=== PATIENT | female | born 1985 | race American Indian/Alaskan Native ===

== ENCOUNTER 2018-02-18 15:52 | Emergency (ER) | payer OTHER ==
[2018-02-18 15:57] VITALS: BP 133/72
[2018-02-18] MEDS ORDERED: Sodium Chloride 0.9% 10 ML Syringe FLUSH PRN (16:13)
[2018-02-18] MEDS ORDERED: Albuterol 0.083% 2.5 MG/3 ML Neb Soln NEB ONE (16:14)
[2018-02-18] MEDS ORDERED: Sodium Chloride 0.9% 1,000 ML IV ONE (16:14)
[2018-02-18] MEDS ORDERED: Acetaminophen/HYDROcodone 325-10 MG Tab PO ONE (16:14)
[2018-02-18] MEDS ORDERED: Iopamidol 755 Mg/ML 100 ML Bottle IVPUSH ONE (16:48)
[2018-02-18 16:57] LABS: CHLORIDE,CL 106 mmol/L (101-111); SODIUM,NA 136 mmol/L (135-145)
--- NOTE | 2018-02-18 18:41 | CT ---
Clinical history: 32 year-old 295 pound diabetic female. Cough, chills, dyspnea. WBC 5200. Serum D di keven 135. 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 O2 sat 95%. Normal renal function and BNP neg. Scan technique: Volume acquisition of data from the chest (bony thorax, lungs and mediastinum) obtain ed during the intravenous administration 85 cc nonionic Isovue 370 at 5 cc/s via injector (PE protoco l) while patient was lying supine on the Siemens multi slice scanner [place], [place]. All data archived in the PACS system for storage, reformatting and study. Interpretation: Abnormal. 1. Dense, bilateral, perihilar pneumonic like consolidation (groundglass appearance with air bronchog saba, particularly on the left). 2. Subcentimeter subcarinal middle mediastinal lymphadenopathy. 3. Scattered, peripheral, multifocal lobular consolidation throughout both lung nuñez (similar prese ntation noted peripherally on CT scan chest 19 July 2016. Significance?) but.... no cu rrent signs of intraluminal filling defect or thrombus within the pulmonary artery circulation. No de pendent pleural fluid accumulation. 4. No discrete lung nodule or mass lesion. No hilar lymphadenopathy. 5. Normal cardiac silhouette. No cephalization of vascular flow or alveolar edema. No pericardial eff usion. Normal thoracic aorta. 6. Unenhanced liver, spleen and pancreas unremarkable. Normal stomach. Discussion: Community-acquired Streptococcus, viral or Mycoplasma pneumonia likely but suggest atypic al viral pneumonias like Legionella or Hantavirus Pulmonary Syndrome possible. Noncardiogenic pulmona ry edema in the differential consideration along with hypersensitivity ([place] lung like) pneumonit is. CONCLUSION: No sign of heart failure (CHF) or pulmonary embolism/infarct. *Abnormal pulmonary pneumonic like consolidation.
--- NOTE | 2018-02-18 18:53 | EDM.PDOC ---
Scribed by Susan Uriarte 02/18/18 0335 for Joni Lackey MD ED HPI GENERAL MEDICAL PROBLEM - General Chief Complaint: Respiratory Problem Stated Complaint: IN BY AMBULANCE Time Seen by Provider: 02/18/18 15:48 Source of Information: Reports: Patient, EMS, EMS Notes Reviewed, RN, RN Notes Reviewed - History of Present Illness INITIAL COMMENTS - FREE TEXT/NARRATIVE: Patient presents to ER via [facility] from [facility] by Dr. Jacques with report of cough with shortness of breath and high fevers that began yesterday. Dr. 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 Patient denies chest pain, nausea, vomiting, sore throat or rashes. Denies any history of cardiovascular disease or asthma. Onset Date: 02/17/18 Duration: Constant, Getting Worse Location: Reports: Chest Severity: Severe Improves with: Reports: None Worsens with: Reports: None Associated Symptoms: Reports: No Other Symptoms Treatments REFERENCE DATA EXPERT: Reports: Breathing Treatments Head Pain Score (Numeric/FACES): 7 - Related Data Allergies Allergy/AdvReac Type Severity Reaction Status Date / Time lidocaine Allergy Intermediate Nausea and Verified 02/18/18 16:45 Vomiting Penicillins Allergy Intermediate Rash Verified 02/18/18 16:45 Home Meds: Home Meds Famotidine [Heartburn Relief] 20 mg PO DAILY PRN 07/16/16 [History] Acetaminophen [Tylenol] 650 mg PO Q6H PRN 07/21/17 [History] Past Medical History - Past Health History Medical/Surgical History: Denies Medical/Surgical History Cardiovascular History: Reports: Other (See Below) Other Cardiovascular History: preeclampsia Respiratory History: Reports: None Gastrointestinal History: Reports: GERD Genitourinary History: Reports: None MANAGER THERAPY History: Reports: , Other (See Below) Other OB/BYN History: first , infant shortly after Musculoskeletal History: Reports: None Neurological History: Reports: None Psychiatric History: Reports: None Endocrine/Metabolic History: Reports: Diabetes, Gestational Hematologic History: Reports: None Immunologic History: Reports: None Oncologic (Cancer) History: Reports: None Dermatologic History: Reports: None - Infectious Disease History Infectious Disease History: Reports: None - Past Surgical History Head Surgeries/Procedures: Reports: None HEENT Surgical History: Reports: Oral Surgery Other HEENT Surgeries/Procedures: root canal "in my early 20s" Had lidocaine reaction. Social & Family History - Family History Family Medical History: Noncontributory - Caffeine Use Caffeine Use: Reports: Coffee, Soda Caffeine Use Comment: 12pk/day, then cut back to 6pk/day, now 1-2/day - Living Situation & Occupation Living situation: Reports: with Family Occupation: Employed ED ROS GENERAL - Review of Systems Review Of Systems: ROS reveals no pertinent complaints other than HPI. ED EXAM, GENERAL - Physical Exam Exam: See Below Exam Limited By: No Limitations General Appearance: Alert, Obese, Other (acute ill appearing ) Eye Exam: Bilateral Eye: Normal Inspection Ears: Normal External Exam, Normal Canal, Hearing Grossly Normal, Normal TMs Nose: Normal Inspection, Normal Mucosa, No Blood Throat/Mouth: Normal Inspection, Normal Lips, Normal Teeth, Normal Gums, Normal Oropharynx, Normal Voice, No Airway Compromise, Other (slightly dry oral membranes) Head: Atraumatic, Normocephalic Neck: Normal Inspection, Supple, Non-Tender, Full Range of Motion, Other (No nuchal rigidity). No: Lymphadenopathy (L), Lymphadenopathy (R) Respiratory/Chest: Decreased Breath Sounds, Crackles, Rhonchi, Wheezing, Other ( increased work of breathing) Cardiovascular: Normal Peripheral Pulses, Regular Rate, Rhythm, No Edema, No Gallop, No JVD, No Murmur, No Rub GI/Abdominal: Normal Bowel Sounds, Soft, Non-Tender, No Distention, Other ( benign obese abdomen) (Female) Exam: Deferred Rectal (Female) Exam: Deferred Back Exam: Normal Inspection. No: CVA Tenderness (L), CVA Tenderness (R) Extremities: Normal Inspection, Normal Range of Motion, Non-Tender, No Pedal Edema, Normal Capillary Refill Neurological: Alert, Oriented, CN II-XII Intact, Normal Cognition, Normal Gait, No Motor/Sensory Deficits Psychiatric: Normal Affect, Normal Mood Skin Exam: Warm, Dry, Intact, No Rash, Other (flushed appearance of face) EKG INTERPRETATION EKG Date: 02/18/18 Time: 16:15 Rhythm: Other (sinus rhythm) Rate (Beats/Min): 87 [place]: Normal P-Wave: Present QRS: Other (consider left ventricular hypertrophy and inferior Q waves, probably normal variation.) ST-T: Normal QT: Normal Course - Vital Signs Last Recorded V/S: Last Vital Signs Temp 37.7 C 02/18/18 15:56 Pulse 87 02/18/18 15:56 Resp 18 02/18/18 15:56 BP 133/72 02/18/18 15:56 Pulse Ox 95 02/18/18 15:56 - Orders/Labs/Meds Orders: Active Orders 24 hr Category Date Time Status EKG 12 Lead [EKG Documentation Completion] [] STAT Care 02/18/18 16:12 Active Peripheral IV Care [] . DIRECTED Care 02/18/18 16:13 Active RT Aerosol Therapy [] ASDIRECTED Care 02/18/18 16:14 Active CULTURE BLOOD [] Stat Lab 02/18/18 16:25 Received CULTURE BLOOD [] Stat Lab 02/18/18 16:29 Received CULTURE STREP A CONFIRMATION [] Stat Lab 02/18/18 17:15 Results HCG QUALITATIVE,URINE [URCHEM] Stat Lab 02/18/18 16:54 Ordered INFLUENZA A+B AG SCREEN [] Stat Lab 02/18/18 16:49 Ordered STREP SCRN A RAPID W CULT CONF [] Stat Lab 02/18/18 17:15 Results UA W/MICROSCOPIC [URIN] Stat Lab 02/18/18 16:54 Ordered Sodium Chloride 0.9% [Saline Flush] Med 02/18/18 16:13 Active 10 ml FLUSH ASDIRECTED PRN Blood Culture x2 Reflex Set [OM.PC] Stat Oth 02/18/18 16:12 Ordered Peripheral IV Insertion Adult [OM.PC] Stat Oth 02/18/18 16:12 Ordered Medication Orders Sodium Chloride (Saline Flush) 10 ml FLUSH ASDIRECTED PRN PRN Reason: Keep Vein Open Last Admin: 02/18/18 16:36 Dose: 10 ml Labs: Laboratory Tests 02/18/18 02/18/18 02/18/18 Range/Units 16:25 16:25 16:25 WBC 5.2 (5.0-10.0) 10^3/uL RBC 4.93 (4.2-5.4) 10^6/uL Hgb 13.5 D (12.0-16.0) g/dL Hct 41.2 (37.0-47.0) % MCV 83.6 (80-100) fL MCH 27.4 (27.0-34.0) pg MCHC 32.8 L (33.0-35.0) g/dL Plt Count 260 D (150-450) 10^3/uL Neut % (Auto) 53.5 (42.2-75.2) % Lymph % (Auto) 32.6 (20.5-50.1) % [place] % (Auto) 7.7 (2-8) % Eos % (Auto) 6.0 H (1.0-3.0) % Baso % (Auto) 0.2 (0.0-1.0) % D-Dimer, Quantitative 133 (0-400) ng/mL Sodium 136 (135-145) mmol/L Potassium 3.5 L (3.6-5.0) mmol/L Chloride 106 (101-111) mmol/L Carbon Dioxide 23.0 (21.0-31.0) mmol/L Anion Gap 10.5 BUN 15 (7-18) mg/dL Creatinine 0.7 (0.6-1.3) mg/dL Est Cr Clr Drug Dosing TNP Estimated GFR (MDRD) > 60 BUN/Creatinine Ratio 21.42 Glucose 108 H (74-105) mg/dL Lactic Acid (0.5-2.2) mmol/L Calcium 8.8 (8.4-10.2) mg/dl Total Bilirubin 0.4 (0.2-1.0) mg/dL AST 78 H (10-42) IU/L ALT 176 H (10-60) IU/L Alkaline Phosphatase 145 H (42-121) IU/L B-Natriuretic Peptide < 5 (0-100) pg/ml Total Protein 8.5 H (6.7-8.2) g/dl Albumin 3.9 (3.2-5.5) g/dl Globulin 4.6 Albumin/Globulin Ratio 0.85 Urine Color (YELLOW) Urine Appearance (CLEAR) Urine pH (5.0-9.0) Ur Specific [place] (1.005-1.030) Urine Protein (NEGATIVE) Urine Glucose (UA) (NEGATIVE) Urine Ketones (NEGATIVE) Urine Occult Blood (NEGATIVE) Urine Nitrite (NEGATIVE) Urine Bilirubin (NEGATIVE) Urine Urobilinogen (0.2-1.0) mg/dL Ur Leukocyte Esterase (NEGATIVE) Urine RBC /HPF Urine WBC (0-5/HPF) /HPF Ur Epithelial Cells /HPF Urine Bacteria (0-FEW/HPF) /HPF Urine Mucus /LPF Urine HCG, Qual 02/18/18 02/18/18 02/18/18 Range/Units 16:25 16:54 16:54 WBC (5.0-10.0) 10^3/uL RBC (4.2-5.4) 10^6/uL Hgb (12.0-16.0) g/dL Hct (37.0-47.0) % MCV (80-100) fL MCH (27.0-34.0) pg MCHC (33.0-35.0) g/dL Plt Count (150-450) 10^3/uL Neut % (Auto) (42.2-75.2) % Lymph % (Auto) (20.5-50.1) % [place] % (Auto) (2-8) % Eos % (Auto) (1.0-3.0) % Baso % (Auto) (0.0-1.0) % D-Dimer, Quantitative (0-400) ng/mL Sodium (135-145) mmol/L Potassium (3.6-5.0) mmol/L Chloride (101-111) mmol/L Carbon Dioxide (21.0-31.0) mmol/L Anion Gap BUN (7-18) mg/dL Creatinine (0.6-1.3) mg/dL Est Cr Clr Drug Dosing Estimated GFR (MDRD) BUN/Creatinine Ratio Glucose (74-105) mg/dL Lactic Acid 1.0 (0.5-2.2) mmol/L Calcium (8.4-10.2) mg/dl Total Bilirubin (0.2-1.0) mg/dL AST (10-42) IU/L ALT (10-60) IU/L Alkaline Phosphatase (42-121) IU/L B-Natriuretic Peptide (0-100) pg/ml Total Protein (6.7-8.2) g/dl Albumin (3.2-5.5) g/dl Globulin Albumin/Globulin Ratio Urine Color Yellow (YELLOW) Urine Appearance Clear (CLEAR) Urine pH 6.0 (5.0-9.0) Ur Specific [place] >= 1.030 (1.005-1.030) Urine Protein Trace H (NEGATIVE) Urine Glucose (UA) Negative (NEGATIVE) Urine Ketones Negative (NEGATIVE) Urine Occult Blood Negative (NEGATIVE) Urine Nitrite Negative (NEGATIVE) Urine Bilirubin Negative (NEGATIVE) Urine Urobilinogen 0.2 (0.2-1.0) mg/dL Ur Leukocyte Esterase Negative (NEGATIVE) Urine RBC 0-5 /HPF Urine WBC 0-5 (0-5/HPF) /HPF Ur Epithelial Cells Few /HPF Urine Bacteria Few (0-FEW/HPF) /HPF Urine Mucus Few H /LPF Urine HCG, Qual Negative Rapid strep: Negative. Influenza A and B: Negative. Meds: Medications Generic Name Dose Route Start Last Admin Trade Name Freq PRN Reason Stop Dose Admin Sodium Chloride 10 ml 02/18/18 16:13 02/18/18 16:36 Saline Flush FLUSH 10 ml ASDIRECTED PRN Administration Keep Vein Open Discontinued Medications Generic Name Dose Route Start Last Admin Trade Name Freq PRN Reason Stop Dose Admin Hydrocodone Bitart/Acetaminophen 1 tab 02/18/18 16:14 02/18/18 16:36 Collins 325-10 Mg PO 02/18/18 16:15 1 tab ONETIME ONE Administration Albuterol 2.5 mg 02/18/18 16:14 02/18/18 16:36 Proventil Neb Soln NEB 02/18/18 16:15 2.5 mg ONETIME ONE Administration Sodium Chloride 1,000 mls @ 999 mls/hr 02/18/18 16:14 02/18/18 16:36 Normal Saline IV 02/18/18 17:14 999 mls/hr .BOLUS ONE Administration Iopamidol 100 ml 02/18/18 16:48 02/18/18 17:40 Isovue-370 (76%) IVPUSH 02/18/18 16:49 85 ml ONETIME ONE Administration - Radiology Interpretation Free Text/Narrative:: Chest x-ray from [facility] reviewed. Abnormal bilateral perihilar "show " with asymmetric left perihilar pneumonic like consolidation new since CT scan chest July 19, 2016. See report in chart. Chest CT: Dense, bilateral, perihilar pneumonic-like consolidation (ground glass appearance with air bronchograms, particularly on the left). Subcentimeter subcarinal middle mediastinal lymphadenopathy. Scattered, peripheral, multifocal lobular consolidation throughout both lung nuñez ( similar presentation noted peripherally on CT scan chest July 10, 2016. Significant?). but no current signs of intraluminal filling defect or thrombus within the pulmolnary artery circulation. No dependent pleural fluid accumulation. No discrete lung nodule or mass lesion. No hilar lymphadenopathy. Normal cardiac silhouette. No cephalization of vascular flow or alveolar edema. No pericardial effusion. Normal thoracic aorta. Unenhanced liver, spleen and pancreas unremarkable. Normal stomach.Discussion:Community acquired Streptococcus,viral or Mycoplasma pneumonia likely but suggest atypical viral pneumonias like Legionella or Hantavirus pulmonary syndrome possible. Noncardiogenic pulmonary edema in the differential consideration along with hypersensitivity ([place]'s lung like) pneumonitis. Conclusion shows no sign of heart failure(CHF)or pulmonary embolism/infarct. *Abnormal pulmonary pneumonic like consolidation. See rad report. - Re-Assessments/Exams Free Text/Narrative Re-Assessment/Exam: 02/18/18 15:46 02/18/18 16:19 Departure - Departure Time of Disposition: 18:39 Disposition: DC/Tfer to Acute Hospital 02 Condition: Serious Clinical Impression: Pulmonary infiltrates, Acute febrile illness Dyspnea Qualifiers: Dyspnea type: unspecified Qualified Code(s): R06.00 - Dyspnea, unspecified - Discharge Information Referrals: PCP,None [Primary Care Provider] - Forms: ED Department Discharge, Interfacility Transfer EMTALA - My Orders Last 24 Hours: My Active Orders 02/18/18 16:12 EKG 12 Lead [EKG Documentation Completion] [RC] STAT Blood Culture x2 Reflex Set [OM.PC] Stat Peripheral IV Insertion Adult [OM.PC] Stat 02/18/18 16:13 Peripheral IV Care [RC] . DIRECTED Sodium Chloride 0.9% [Saline Flush] 10 ml FLUSH ASDIRECTED PRN 02/18/18 16:14 RT Aerosol Therapy [RC] ASDIRECTED 02/18/18 16:25 CULTURE BLOOD [BC] Stat 02/18/18 16:29 CULTURE BLOOD [BC] Stat 02/18/18 16:49 INFLUENZA A+B AG SCREEN [RM] Stat 02/18/18 16:54 HCG QUALITATIVE,URINE [URCHEM] Stat UA W/MICROSCOPIC [URIN] Stat 02/18/18 17:15 CULTURE STREP A CONFIRMATION [RM] Stat STREP SCRN A RAPID W CULT CONF [RM] Stat - Assessment/Plan Last 24 Hours: My Active Orders 02/18/18 16:12 EKG 12 Lead [EKG Documentation Completion] [RC] STAT Blood Culture x2 Reflex Set [OM.PC] Stat Peripheral IV Insertion Adult [OM.PC] Stat 02/18/18 16:13 Peripheral IV Care [RC] . DIRECTED Sodium Chloride 0.9% [Saline Flush] 10 ml FLUSH ASDIRECTED PRN 02/18/18 16:14 RT Aerosol Therapy [RC] ASDIRECTED 02/18/18 16:25 CULTURE BLOOD [BC] Stat 02/18/18 16:29 CULTURE BLOOD [BC] Stat 02/18/18 16:49 INFLUENZA A+B AG SCREEN [RM] Stat 02/18/18 16:54 HCG QUALITATIVE,URINE [URCHEM] Stat UA W/MICROSCOPIC [URIN] Stat 02/18/18 17:15 CULTURE STREP A CONFIRMATION [RM] Stat STREP SCRN A RAPID W CULT CONF [RM] Stat I have read and agree with the documentation that has been completed regarding this visit. By signing this record, I attest that the documentation was completed in my physical presence and is an accurate record of the encounter.
--- NOTE | 2018-02-19 18:31 | EKG ---
02/18/2018 - ADAM REZA - TIME: 4:15 p.m. FINDINGS: Normal sinus rhythm at 87. [facility] /[id number]
== END 2018-02-18 19:00 ==
LOC: DL.ED 15:52
DX: R06.00 Dyspnea, unspecified (principal); R91.8 Other nonspecific abnormal finding of lung field; R50.9 Fever, unspecified; Z88.0 Allergy status to penicillin; Z88.8 Allergy status to other drugs, medicaments and biological substances; Z79.899 Other long term (current) drug therapy
CPT/HCPCS: 36415; 71260; 80053; 81001; 81025; 83605; 83880; 85025; 85379; 87040; 87081; 87430; 87804; 93005; 96360; 99285; A9270; J7030; J7050; J7620; Q9967

== ENCOUNTER 2018-10-24 19:49 | Day surgery (SDC) | payer BC, OTHER ==
--- NOTE | 2018-10-24 12:24 | HP ---
Preoperative history and physical INTRODUCTION: This 33-year-old female was referred by [facility] with a 2-day history of severe umbilical pain and physical examination compatible with an umbilical hernia. She is unable to eat anything, probably not from obstruction, but from just the pain. Instead of referring her to the emergency room, I simply had them send her to my clinic for the evaluation there. PAST MEDICAL HISTORY: The patient has questionable allergies to penicillin and lidocaine. She vomited after lidocaine was used for the dentist, but has since had lidocaine for carpal tunnel procedure without any difficulty. She also had reaction to penicillin, not really an allergy, but got a post penicillin vaginal yeast infection. CURRENT MEDICATIONS: She takes medication for thyroid. PAST SURGICAL HISTORY: Prior surgeries include section and right carpal tunnel syndrome surgery release. FAMILY HISTORY AND SOCIAL HISTORY: The patient is . She lives in [place]. She does not smoke. REVIEW OF SYSTEMS: Negative for all systems. Cardiac: Negative for chest pain. Respiratory: Negative for shortness of breath, asthma, or COPD. PHYSICAL EXAMINATION: HEENT: Normal. Chest and lungs: Clear bilaterally to auscultation. Heart: Normal sinus rhythm. Abdomen: Morbidly obese. She has a large palpable umbilical hernia with purple necrotic-appearing tissue underneath the umbilical skin. This is too tender to try to manipulate; therefore, incarcerated. Extremities: Have normal range of motion. Neurologic: Grossly intact. ASSESSMENT: Incarcerated umbilical hernia. PLAN: I discussed the risks, benefits, and expected outcomes of an open surgical repair for this. The patient will go to the operating room today. [facility] /[id number]
[~2018-10-24 19:49] MED LIST: Lactated Ringers 1,000 ML IV SCH; Morphine 2 MG/ML Syringe IVPUSH ONE; Morphine 2 MG/ML Syringe IVPUSH PRN; Ondansetron 4 MG/2 ML SDV IVPUSH PRN; ceFAZolin 2 GM in Premix Bag 1 BAG IV ONE
[2018-10-24] MEDS ORDERED: Midazolam 1 MG/ML 2 ML SDV IV ONE (19:50)
[2018-10-24] MEDS ORDERED: Lactated Ringers 1,000 ML IV ONE (19:50)
[2018-10-24] MEDS ORDERED: Ketorolac 30 MG/ML SDV IVPUSH ONE (19:50)
[2018-10-24] MEDS ORDERED: fentaNYL 250 MCG/5 ML SDV IV ONE (19:50)
[2018-10-24] MEDS ORDERED: Dexamethasone 4 MG/ML SDV IV ONE (19:50)
[2018-10-24] MEDS ORDERED: Propofol 200 MG/20 ML SDV IV ONE (19:50)
[2018-10-24] MEDS ORDERED: Ondansetron 4 MG/2 ML SDV IV ONE (19:50)
[2018-10-24] MEDS ORDERED: Glycopyrrolate 0.2 MG/ML 2 ML SDV IV ONE (19:50)
[2018-10-24] MEDS ORDERED: Neostigmine Methylsulfate 10 MG/10 ML MDV IV ONE (19:50)
[2018-10-24] MEDS ORDERED: Rocuronium 50 MG/5 ML Vial IV ONE (19:50)
[2018-10-24] MEDS: Sodium Chloride 0.9% 10 ML Syringe FLUSH PRN ×2 (20:26→20:44)
[2018-10-25] MEDS: Acetaminophen/oxyCODONE 325-5 MG Tab PO PRN ×3 (00:20→08:30)
--- NOTE | 2018-10-25 00:48 | OR ---
DATE: 10/24/2018 PREOPERATIVE DIAGNOSIS: Incarcerated umbilical hernia. POSTOPERATIVE DIAGNOSIS: Incarcerated umbilical hernia. PROCEDURES: Open repair of incarcerated umbilical hernia and amputation of the omentum. ANESTHESIA: General. ESTIMATED BLOOD LOSS: Minimal. SPECIMEN: Hernia sac and omentum. INDICATION FOR PROCEDURE: This 33-year-old female has a large incarcerated hernia with necrosis through the umbilical skin. PROCEDURE IN DETAIL: After adequate preparation, an elliptical incision was made around the umbilicus. As I had discussed with the patient preoperatively, I was going to excise the umbilical skin since it has had some areas of questionable viability. The hernia sac was dissected free from the subcutaneous tissue and taken down to the linea alba. The linea alba was incised circumferentially around the incarcerated hernia. The part of the sac was opened, and the omentum was reduced. However, the remaining distal part was stuck inside the hernia sac. I decided to amputate the end of the omentum in the hernia sac and leave it that way. Pean clamps were used to sequentially clamp and tie the omentum. The omentum was then reduced back into the abdominal cavity, and the fascial defect was closed in a [id number] fashion using #1 Prolene sutures. This was then reinforced with a few #1 Vicryl sutures in an interrupted fashion. The wound was irrigated with saline. The subcutaneous layer was closed together with 0 Vicryl suture and 4-0 Monocryl was used for the skin. [facility] /[id number]
--- NOTE | 2018-10-25 08:02 | PCM.SN ---
- Free Text/Narrative Note: Stable POD #1. PO adequate. Pain controller. Wound clean and dry. Up out of bed. Off work for 1 week, otherwise no restrictions. FU with my clinic if needed. Percocet (20) given for pain. Can discharge.
[2018-10-25 13:44] VITALS: BP 132/64
== END 2018-10-25 11:00 | disposition home or self-care (01) ==
LOC: DL.SDS 19:49 → DL.MS 19:49 → DL.SDS 10-25 11:00
PROVIDERS: ATTEND Surgery
DX: K42.0 Umbilical hernia with obstruction, without gangrene (principal); I10 Essential (primary) hypertension; E66.01 Morbid (severe) obesity due to excess calories; Z68.42 Body mass index [BMI] 45.0-49.9, adult; E03.9 Hypothyroidism, unspecified; K21.9 Gastro-esophageal reflux disease without esophagitis; Z79.890 Hormone replacement therapy; Z79.899 Other long term (current) drug therapy
CPT/HCPCS: 49587; A9270; J0690; J1100; J1885; J2250; J2270; J2405; J2704; J2710; J3010; J3490; J7120; 99203

== ENCOUNTER 2019-12-30 05:31 | Emergency (ER) | payer BC ==
[2019-12-30 05:48] VITALS: BP 128/76; PULSE 89
[2019-12-30 06:15] LABS: ANION GAP 13.7 mEq/L (7-13); CHLORIDE,CL 102 mmol/L (98-107); SODIUM,NA 137 mmol/L (136-145)
[2019-12-30] MEDS ORDERED: Iopamidol 612 MG/ML 100 ML Bottle IVPUSH ONE (06:49)
[2019-12-30] MEDS ORDERED: Sodium Chloride 0.9% 1,000 ML IV ONE (06:49)
--- NOTE | 2019-12-30 07:02 | EDM.PDOC ---
<Geoffrey Pang - Last Filed: 12/30/19 06:57> ED HPI GENERAL MEDICAL PROBLEM - General Chief Complaint: Chest Pain Stated Complaint: AMBULANCE Time Seen by Provider: 12/30/19 05:45 Source of Information: Reports: Patient History Limitations: Reports: No Limitations - History of Present Illness INITIAL COMMENTS - FREE TEXT/NARRATIVE: ED via [facility] with c/o anterior chest pain, slight SOB, mainly nasal congestion. Has seasonal allergies. x one month. Lost hearing in left ear due to congestion. Denies cough. No known fever, No nausea or vomiting. 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 Reports lots of stress in job. 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 Mid-Sternal Chest Pain Score (Numeric/FACES): 3 - Related Data Allergies Allergy/AdvReac Type Severity Reaction Status Date / Time lidocaine Allergy Intermediate Nausea and Verified 10/24/18 11:38 Vomiting Penicillins Allergy Intermediate Rash Verified 10/24/18 11:38 Home Meds: Home Meds Acetaminophen [Tylenol] 650 mg PO Q6H PRN 07/21/17 [History] Fluticasone Propionate [Flonase] 2 sprays NASBOTH Q6HR PRN 12/30/19 [History] Levothyroxine Sodium [Synthroid] 75 mcg PO DAILY 12/30/19 [History] Loratadine [Alavert] 10 mg PO Q12HR PRN 12/30/19 [History] lisinopriL [Lisinopril] 10 mg PO DAILY 12/30/19 [History] metFORMIN HCl [Metformin HCl] 1,000 mg PO DAILY 12/30/19 [History] Past Medical History - Past Health History Medical/Surgical History: Denies Medical/Surgical History HEENT History: Reports: Impaired Vision Other HEENT History: WEARS CONTACT LENS Cardiovascular History: Reports: Other (See Below) Other Cardiovascular History: preeclampsia Respiratory History: Reports: None Gastrointestinal History: Reports: GERD Genitourinary History: Reports: None CHICKEN RAISER History: Reports: , Other (See Below) Other CHICKEN RAISER History: first , infant shortly after Musculoskeletal History: Reports: None Neurological History: Reports: Headaches, Chronic Psychiatric History: Reports: None Endocrine/Metabolic History: Reports: Diabetes, Gestational, Obesity/BMI 30+ Hematologic History: Reports: None Immunologic History: Reports: None Oncologic (Cancer) History: Reports: None Dermatologic History: Reports: None - Infectious Disease History Infectious Disease History: Reports: Chicken Pox - Past Surgical History Head Surgeries/Procedures: Reports: None HEENT Surgical History: Reports: Oral Surgery Other HEENT Surgeries/Procedures: root canal "in my early 20s" Had lidocaine reaction. Cardiovascular Surgical History: Reports: None Respiratory Surgical History: Reports: None GI Surgical History: Reports: None Female Surgical History: Reports: Section Endocrine Surgical History: Reports: None Neurological Surgical History: Reports: None Musculoskeletal Surgical History: Reports: Carpal Tunnel, Other (See Below) Other Musculoskeletal Surgeries/Procedures:: CORTISONE INJECTION FOR CARPAL TUNNEL Oncologic Surgical History: Reports: None Dermatological Surgical History: Reports: None Social & Family History - Family History Family Medical History: Noncontributory - Tobacco Use Smoking Status *Q: Never Smoker - Caffeine Use Caffeine Use: Reports: None Caffeine Use Comment: APPROX 12 PK DAILY OF SODA POP, 2-3 CUPS COFFEE DAILY - Recreational Drug Use Recreational Drug Use: No - Living Situation & Occupation Living situation: Reports: with Family Occupation: Employed ED ROS GENERAL - Review of Systems Review Of Systems: Comprehensive ROS is negative, except as noted in HPI. ED EXAM, GENERAL - Physical Exam Exam: See Below Exam Limited By: No Limitations General Appearance: Alert, Anxious, Mild Distress Eye Exam: Bilateral Eye: EOMI, PERRL Ears: Normal External Exam. No: Normal TMs (mild effusions bilaterally) Nose: Normal Inspection Throat/Mouth: Normal Inspection Head: Atraumatic, Normocephalic Neck: Normal Inspection Respiratory/Chest: No Respiratory Distress, Lungs Clear, Normal Breath Sounds Cardiovascular: Normal Peripheral Pulses, Regular Rate, Rhythm (Female) Exam: Normal External Exam Rectal (Female) Exam: Normal Exam Extremities: Normal Inspection Neurological: Alert, Oriented Psychiatric: Normal Affect Skin Exam: Warm, Dry, Intact, Normal Color Course - Vital Signs Last Recorded V/S: Last Vital Signs Temp 98.1 F 12/30/19 05:43 Pulse 89 12/30/19 05:43 Resp 20 12/30/19 05:43 BP 128/76 12/30/19 05:43 Pulse Ox 100 12/30/19 05:43 - Orders/Labs/Meds Orders: Active Orders 24 hr Category Date Time Status EKG Documentation Completion [RC] STAT Care 12/30/19 05:30 Active CXR [Chest 2V] [CR] Urgent Exams 12/30/19 05:57 Taken Chest w Cont [CT] Urgent Exams 12/30/19 06:25 Taken CORONAVIRUS COVID-19 PCR PHL Urgent Lab 12/30/19 06:29 Ordered Isolation [COMM] Routine Oth 12/30/19 06:40 Active Labs: Laboratory Tests 12/30/19 12/30/19 12/30/19 Range/Units 05:43 05:43 05:43 WBC 8.3 (5.0-10.0) 10^3/uL RBC 4.57 (4.2-5.4) 10^6/uL Hgb 12.7 (12.0-16.0) g/dL Hct 38.4 (37.0-47.0) % MCV 84.0 (80-100) fL MCH 27.8 (27.0-34.0) pg MCHC 33.1 (33.0-35.0) g/dL Plt Count 233 (150-450) 10^3/uL Neut % (Auto) 65.8 (42.2-75.2) % Lymph % (Auto) 21.2 (20.5-50.1) % [place] % (Auto) 6.5 (2-8) % Eos % (Auto) 6.4 H (1.0-3.0) % Baso % (Auto) 0.1 (0.0-1.0) % PT (9.0-12.0) SEC INR (0.9-1.2) D-Dimer, Quantitative < 100 (0-400) ng/mL Sodium 137 (136-145) mmol/L Potassium 3.7 (3.5-5.1) mmol/L Chloride 102 (98-107) mmol/L Carbon Dioxide 25 (21-32) mmol/L Anion Gap 13.7 H (7-13) mEq/L BUN 13 (7-18) mg/dL Creatinine 0.75 (0.55-1.02) mg/dL Est Cr Clr Drug Dosing 95.10 mL/min Estimated GFR (MDRD) > 60 BUN/Creatinine Ratio 17.3 (No establ ref range) Glucose 136 H (74-99) mg/dL Calcium 8.4 L (8.5-10.1) mg/dL Total Bilirubin 0.5 (0.2-1.0) mg/dL AST 48 H (15-37) U/L ALT 85 H (14-59) U/L Alkaline Phosphatase 90 (46-116) U/L Troponin I < 0.017 (0.000-0.056) ng/mL Total Protein 8.2 (6.4-8.2) g/dL Albumin 3.3 L (3.4-5.0) g/dL Globulin 4.9 Albumin/Globulin Ratio 0.67 Amylase (25-115) U/L Lipase (73-393) U/L TSH, Ultra Sensitive (0.36-3.74) uIU/mL HCG, Qual Negative Urine Color (YELLOW) Urine Appearance (CLEAR) Urine pH (5.0-9.0) Ur Specific [place] (1.005-1.030) Urine Protein (NEGATIVE) Urine Glucose (UA) (NEGATIVE) Urine Ketones (NEGATIVE) Urine Occult Blood (NEGATIVE) Urine Nitrite (NEGATIVE) Urine Bilirubin (NEGATIVE) Urine Urobilinogen (0.2-1.0) mg/dL Ur Leukocyte Esterase (NEGATIVE) Urine Opiates Screen (NEGATIVE) Ur Oxycodone Screen (NEGATIVE) Urine Methadone Screen (NEGATIVE) Ur Barbiturates Screen (NEGATIVE) U Tricyclic Antidepress (NEGATIVE) Ur Phencyclidine Scrn (NEGATIVE) Ur Amphetamine Screen (NEGATIVE) U Methamphetamines Scrn (NEGATIVE) Urine MDMA Screen (NEGATIVE) U Benzodiazepines Scrn (NEGATIVE) Urine Cocaine Screen (NEGATIVE) U Marijuana (THC) Screen (NEGATIVE) 12/30/19 12/30/19 12/30/19 Range/Units 05:43 05:43 06:58 WBC (5.0-10.0) 10^3/uL RBC (4.2-5.4) 10^6/uL Hgb (12.0-16.0) g/dL Hct (37.0-47.0) % MCV (80-100) fL MCH (27.0-34.0) pg MCHC (33.0-35.0) g/dL Plt Count (150-450) 10^3/uL Neut % (Auto) (42.2-75.2) % Lymph % (Auto) (20.5-50.1) % [place] % (Auto) (2-8) % Eos % (Auto) (1.0-3.0) % Baso % (Auto) (0.0-1.0) % PT 9.7 (9.0-12.0) SEC INR 1.0 (0.9-1.2) D-Dimer, Quantitative (0-400) ng/mL Sodium (136-145) mmol/L Potassium (3.5-5.1) mmol/L Chloride (98-107) mmol/L Carbon Dioxide (21-32) mmol/L Anion Gap (7-13) mEq/L BUN (7-18) mg/dL Creatinine (0.55-1.02) mg/dL Est Cr Clr Drug Dosing mL/min Estimated GFR (MDRD) BUN/Creatinine Ratio (No establ ref range) Glucose (74-99) mg/dL Calcium (8.5-10.1) mg/dL Total Bilirubin (0.2-1.0) mg/dL AST (15-37) U/L ALT (14-59) U/L Alkaline Phosphatase (46-116) U/L Troponin I (0.000-0.056) ng/mL Total Protein (6.4-8.2) g/dL Albumin (3.4-5.0) g/dL Globulin Albumin/Globulin Ratio Amylase 22 L (25-115) U/L Lipase 71 L (73-393) U/L TSH, Ultra Sensitive 15.42 H (0.36-3.74) uIU/mL HCG, Qual Urine Color Yellow (YELLOW) Urine Appearance Clear (CLEAR) Urine pH 6.5 (5.0-9.0) Ur Specific [place] 1.015 (1.005-1.030) Urine Protein Negative (NEGATIVE) Urine Glucose (UA) Negative (NEGATIVE) Urine Ketones Negative (NEGATIVE) Urine Occult Blood Negative (NEGATIVE) Urine Nitrite Negative (NEGATIVE) Urine Bilirubin Negative (NEGATIVE) Urine Urobilinogen 0.2 (0.2-1.0) mg/dL Ur Leukocyte Esterase Negative (NEGATIVE) Urine Opiates Screen (NEGATIVE) Ur Oxycodone Screen (NEGATIVE) Urine Methadone Screen (NEGATIVE) Ur Barbiturates Screen (NEGATIVE) U Tricyclic Antidepress (NEGATIVE) Ur Phencyclidine Scrn (NEGATIVE) Ur Amphetamine Screen (NEGATIVE) U Methamphetamines Scrn (NEGATIVE) Urine MDMA Screen (NEGATIVE) U Benzodiazepines Scrn (NEGATIVE) Urine Cocaine Screen (NEGATIVE) U Marijuana (THC) Screen (NEGATIVE) 12/30/19 Range/Units 06:58 WBC (5.0-10.0) 10^3/uL RBC (4.2-5.4) 10^6/uL Hgb (12.0-16.0) g/dL Hct (37.0-47.0) % MCV (80-100) fL MCH (27.0-34.0) pg MCHC (33.0-35.0) g/dL Plt Count (150-450) 10^3/uL Neut % (Auto) (42.2-75.2) % Lymph % (Auto) (20.5-50.1) % [place] % (Auto) (2-8) % Eos % (Auto) (1.0-3.0) % Baso % (Auto) (0.0-1.0) % PT (9.0-12.0) SEC INR (0.9-1.2) D-Dimer, Quantitative (0-400) ng/mL Sodium (136-145) mmol/L Potassium (3.5-5.1) mmol/L Chloride (98-107) mmol/L Carbon Dioxide (21-32) mmol/L Anion Gap (7-13) mEq/L BUN (7-18) mg/dL Creatinine (0.55-1.02) mg/dL Est Cr Clr Drug Dosing mL/min Estimated GFR (MDRD) BUN/Creatinine Ratio (No establ ref range) Glucose (74-99) mg/dL Calcium (8.5-10.1) mg/dL Total Bilirubin (0.2-1.0) mg/dL AST (15-37) U/L ALT (14-59) U/L Alkaline Phosphatase (46-116) U/L Troponin I (0.000-0.056) ng/mL Total Protein (6.4-8.2) g/dL Albumin (3.4-5.0) g/dL Globulin Albumin/Globulin Ratio Amylase (25-115) U/L Lipase (73-393) U/L TSH, Ultra Sensitive (0.36-3.74) uIU/mL HCG, Qual Urine Color (YELLOW) Urine Appearance (CLEAR) Urine pH (5.0-9.0) Ur Specific [place] (1.005-1.030) Urine Protein (NEGATIVE) Urine Glucose (UA) (NEGATIVE) Urine Ketones (NEGATIVE) Urine Occult Blood (NEGATIVE) Urine Nitrite (NEGATIVE) Urine Bilirubin (NEGATIVE) Urine Urobilinogen (0.2-1.0) mg/dL Ur Leukocyte Esterase (NEGATIVE) Urine Opiates Screen Negative (NEGATIVE) Ur Oxycodone Screen Positive H (NEGATIVE) Urine Methadone Screen Negative (NEGATIVE) Ur Barbiturates Screen Negative (NEGATIVE) U Tricyclic Antidepress Negative (NEGATIVE) Ur Phencyclidine Scrn Negative (NEGATIVE) Ur Amphetamine Screen Negative (NEGATIVE) U Methamphetamines Scrn Negative (NEGATIVE) Urine MDMA Screen Negative (NEGATIVE) U Benzodiazepines Scrn Negative (NEGATIVE) Urine Cocaine Screen Negative (NEGATIVE) U Marijuana (THC) Screen Negative (NEGATIVE) Meds: Medications Discontinued Medications Generic Name Dose Route Start Last Admin Trade Name Freq PRN Reason Stop Dose Admin Sodium Chloride 1,000 mls @ 999 mls/hr 12/30/19 06:49 12/30/19 06:56 Normal Saline IV 12/30/19 07:49 999 mls/hr .BOLUS ONE Administration Iopamidol 100 ml 12/30/19 06:49 12/30/19 07:33 Isovue-300 (61%) IVPUSH 12/30/19 06:50 100 ml ONETIME ONE Administration - Radiology Interpretation Free Text/Narrative:: [facility] Final Radiology Report Call: [phone] assistance Online chat: [email or web address] Name: ADAM REZA Age: 34Years F Date: 12/30/2019 SSN: -- : [id number] Study: XR CHEST 2 VIEWS FRONTAL & LAT Requesting Physician: GEOFFREY PANG Images: 2 Addl Studies: Provided Clinical History: Contrast: Contrast Medium: Contrast Amount: Contrast Method: CONFIDENTIALITY STATEMENT This report is intended only for use by the referring physician, and only in accordance with law. If you received this in error, call [phone]. Page 1 of 1 PROCEDURE INFORMATION: Exam: XR Chest, 2 Views Exam date and time: 12/30/2019 6:01 AM Age: 34 years old Clinical indication: Shortness of breath; Chest pain TECHNIQUE: Imaging protocol: XR of the chest Views: 2 views. COMPARISON: CT Chest w Cont 02/18/2018 5:24 PM FINDINGS: Lungs: Bilateral perihilar infiltrates similar to the prior study dated 2017 Pleural space: No evidence for pleural effusion Heart/Mediastinum: Unremarkable. No cardiomegaly. Bones/joints: Unremarkable. IMPRESSION: Bilateral perihilar infiltrates suggestive of pneumonia. The appearance is similar to the prior CT scan of the chest dated 02/18/2018 Thank you for allowing us to participate in the care of your patient. Dictated and Authenticated by: Natty - Re-Assessments/Exams Free Text/Narrative Re-Assessment/Exam: 12/30/19 07:04 Care tx to [facility] [employer] with change of shift Departure - Departure Disposition: Home, Self-Care 01 Clinical Impression: Chest pain Qualifiers: Chest pain type: unspecified Qualified Code(s): R07.9 - Chest pain, unspecified Pneumonia Qualifiers: Pneumonia type: due to unspecified organism Laterality: bilateral Lung location : unspecified part of lung Qualified Code(s): J18.9 - Pneumonia, unspecified organism - Discharge Information Instructions: Nonspecific Chest Pain, Adult, [id number], Community-Acquired Pneumonia, Adult, [id number] Forms: ED Department Discharge Additional Instructions: RX: Azithromycin Stay at home and quarantine until results are back Return to the ER with any further problems Follow up with your primary care facility May use Tylenol and/or Ibuprofen as directed for pain Sepsis Event Note - Evaluation Sepsis Screening Result: No Definite Risk - Focused Exam Vital Signs: Vital Signs Temp Pulse Resp BP Pulse Ox 12/30/19 05:43 98.1 F 89 20 128/76 100 Date Exam was Performed: 12/30/19 Time Exam was Performed: 06:57 <Paige Sorto - Last Filed: 12/30/19 08:03> Course - Radiology Interpretation Free Text/Narrative:: Chest CT: FINDINGS: Thyroid: The bilateral thyroid lobes are unremarkable. Lungs: Resolved peripheral bilateral pulmonary infiltrates on the prior study. In the region of most confluent previous infiltrates in the central bilateral upper lobes, architectural distortion is present suggestive of pulmonary parenchymal scarring. Similar wedge like density also noted at the right apex, a site not previously involved. Pleural space: No pneumothorax. No pleural effusion. Heart: Normal. No pericardial effusion. Pulmonary arteries: The bolus is suboptimal for imaging of peripheral pulmonary emboli. Aorta: Unremarkable. No aortic aneurysm. Other arteries: Ligamentum arteriosum calcification, normal variant. Lymph nodes: Aorticopulmonary window lymph node measuring 8.3 mm short axis. Right pulmonary hilar lymph node measuring 9.6 mm short axis. Left pulmonary hilar lymph node measuring 9.2 mm short axis. Liver: Moderate diffuse hypoattenuation of the liver is present consistent with hepatic steatosis. Bones/joints: Mild thoracic spine vertebral body marginal osteophytes are noted at multiple levels. Soft tissues: Unremarkable. IMPRESSION: 1. Probable pulmonary parenchymal scarring. 2. No large central pulmonary embolism identified, as visualized. Please see above limitations. 3. No thoracic aortic aneurysm or dissection identified. 4. Fatty infiltration of the liver. Thank you for allowing us to participate in the care of your patient. Dictated and Authenticated by: Gordo Tobin MD 12/30/2019 7:52 AM Central Time ([place] & [place]) See rad report Departure - Departure Time of Disposition: 07:59 Condition: Fair - Discharge Information *PRESCRIPTION DRUG MONITORING PROGRAM REVIEWED*: No *COPY OF PRESCRIPTION DRUG MONITORING REPORT IN PATIENT CLEO: No Sepsis Event Note - Focused Exam Date Exam was Performed: 12/30/19 Time Exam was Performed: 08:03
== END 2019-12-30 08:22 | disposition home or self-care (01) ==
LOC: DL.ED 05:31
DX: J18.9 Pneumonia, unspecified organism (principal); E66.9 Obesity, unspecified; Z68.43 Body mass index [BMI] 50.0-59.9, adult; Z79.899 Other long term (current) drug therapy; Z88.0 Allergy status to penicillin; Z88.8 Allergy status to other drugs, medicaments and biological substances
CPT/HCPCS: 36415; 71046; 71260; 80053; 80305; 81003; 82150; 83690; 84443; 84484; 84703; 85025; 85379; 85610; 87635; 87804; 93005; 99285; J7030; Q9967; U0002

== ENCOUNTER 2020-06-11 18:54 | Emergency (ER) | payer BC, OTHER ==
[2020-06-11 19:07] VITALS: BP 121/70; PULSE 80
--- NOTE | 2020-06-11 19:39 | CR ---
PROCEDURE INFORMATION: Exam: XR Right Ankle Exam date and time: 06/11/2020 7:28 PM Age: 35 years old Clinical indication: Other: Pain; Additional info: Pain right ankle, obese, no injury TECHNIQUE: Imaging protocol: XR Right ankle. Views: 3 or more views. COMPARISON: No relevant prior studies available. FINDINGS: Bones/joints: Normal. No fractures are present. The ankle mortise is intact. Soft tissues: Moderate soft tissue swelling is present. IMPRESSION: 1. Soft tissue swelling without underlying osseous abnormality.
--- NOTE | 2020-06-11 19:53 | EDM.PDOC ---
ED HPI GENERAL MEDICAL PROBLEM - General Chief Complaint: Lower Extremity Injury/Pain Stated Complaint: RIGHT ANKLE PAIN Time Seen by Provider: 06/11/20 19:15 Source of Information: Reports: Patient, RN, RN Notes Reviewed History Limitations: Reports: No Limitations - History of Present Illness INITIAL COMMENTS - FREE TEXT/NARRATIVE: Patient to ER with c/o right ankle pain that began today after her shift at [facility]. Patient states she has not had any injury but stands on a concrete floor all day. Patient states she tried to take a nap but ankle was throbbing so unable to sleep. Onset: Today Left Ankle Pain Score (Numeric/FACES): 8 - Related Data Allergies Allergy/AdvReac Type Severity Reaction Status Date / Time lidocaine Allergy Intermediate Nausea and Verified 06/11/20 19:12 Vomiting Penicillins Allergy Intermediate Rash Verified 06/11/20 19:12 Home Meds: Home Meds Acetaminophen [Tylenol] 650 mg PO Q6H PRN 07/21/17 [History] Fluticasone Propionate [Flonase] 2 sprays NASBOTH Q6HR PRN 12/30/19 [History] Levothyroxine Sodium [Synthroid] 75 mcg PO DAILY 12/30/19 [History] Loratadine [Alavert] 10 mg PO Q12HR PRN 12/30/19 [History] lisinopriL [Lisinopril] 10 mg PO DAILY 12/30/19 [History] metFORMIN HCl [Metformin HCl] 1,000 mg PO DAILY 12/30/19 [History] Buprenorphine/Naloxone [Buprenorphine-Naloxone 8 MG-2 MG] 1 tab PO DAILY 06/11/20 [History] Past Medical History - Past Health History Medical/Surgical History: Denies Medical/Surgical History HEENT History: Reports: Impaired Vision Other HEENT History: WEARS CONTACT LENS Cardiovascular History: Reports: Other (See Below) Other Cardiovascular History: preeclampsia Respiratory History: Reports: None Gastrointestinal History: Reports: GERD Genitourinary History: Reports: None 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: , Other (See Below) Other SPINDLE MAKER History: first , shortly after Musculoskeletal History: Reports: None Neurological History: Reports: Headaches, Chronic Psychiatric History: Reports: None Endocrine/Metabolic History: Reports: Diabetes, Type II, Obesity/BMI 30+ Hematologic History: Reports: None Immunologic History: Reports: None Oncologic (Cancer) History: Reports: None Dermatologic History: Reports: None - Infectious Disease History Infectious Disease History: Reports: Chicken Pox - Past Surgical History Head Surgeries/Procedures: Reports: None HEENT Surgical History: Reports: Oral Surgery Other HEENT Surgeries/Procedures: root canal "in my early 20s" Had lidocaine reaction. Cardiovascular Surgical History: Reports: None Respiratory Surgical History: Reports: None GI Surgical History: Reports: None Female Surgical History: Reports: Section Endocrine Surgical History: Reports: None Neurological Surgical History: Reports: None Musculoskeletal Surgical History: Reports: Carpal Tunnel, Other (See Below) Other Musculoskeletal Surgeries/Procedures:: CORTISONE INJECTION FOR CARPAL TUNNEL Oncologic Surgical History: Reports: None Dermatological Surgical History: Reports: None Social & Family History - Family History Family Medical History: Noncontributory - Tobacco Use Smoking Status *Q: Never Smoker Second Hand Smoke Exposure: No - Caffeine Use Caffeine Use: Reports: Coffee Caffeine Use Comment: APPROX 12 PK DAILY OF SODA POP, 2-3 CUPS COFFEE DAILY - Recreational Drug Use Recreational Drug Use: No - Living Situation & Occupation Living situation: Reports: with Family Occupation: Employed Review of Systems - Review of Systems Review Of Systems: Comprehensive ROS is negative, except as noted in HPI. ED EXAM, GENERAL - Physical Exam Exam: See Below Exam Limited By: No Limitations Eye Exam: Bilateral Eye: EOMI Ears: Normal External Exam, Hearing Grossly Normal Nose: Normal Inspection Throat/Mouth: Normal Inspection Head: Atraumatic Neck: Normal Inspection Respiratory/Chest: No Respiratory Distress, Lungs Clear, Normal Breath Sounds Cardiovascular: Normal Peripheral Pulses, Regular Rate, Rhythm, No Edema Peripheral Pulses: 2+: Posterior Tibial (L), Posterior Tibial (R), Dorsalis Pedis (L), Dorsalis Pedis (R) GI/Abdominal: Normal Bowel Sounds (Female) Exam: Deferred Back Exam: Normal Inspection Extremities: Normal Inspection, Joint Swelling (right ankle with mild swelling and limited range of motion due to pain), Limited Range of Motion Neurological: Alert, Oriented, Normal Cognition, No Motor/Sensory Deficits Psychiatric: Normal Affect, Normal Mood Skin Exam: Warm, Dry, Intact, Normal Color, No Rash Lymphatic: No Adenopathy Course - Vital Signs Last Recorded V/S: Last Vital Signs Temp 97.8 F 06/11/20 19:04 Pulse 80 06/11/20 19:04 Resp 16 06/11/20 19:04 BP 121/70 06/11/20 19:04 Pulse Ox 97 06/11/20 19:04 - Radiology Interpretation Free Text/Narrative:: Right ankle xray: PROCEDURE INFORMATION: Exam: XR Right Ankle Exam date and time: 06/11/2020 7:28 PM Age: 35 years old Clinical indication: Other: Pain; Additional info: Pain right ankle, obese, no injury TECHNIQUE: Imaging protocol: XR Right ankle. Views: 3 or more views. COMPARISON: No relevant prior studies available. FINDINGS: Bones/joints: Normal. No fractures are present. The ankle mortise is intact. Soft tissues: Moderate soft tissue swelling is present. IMPRESSION: 1. Soft tissue swelling without underlying osseous abnormality. Thank you for allowing us to participate in the care of your patient. Dictated and Authenticated by: Yuniel Pepe MD 06/11/2020 7:39 PM Central Time ([place] & [place]) See rad report Departure - Departure Time of Disposition: 19:57 Disposition: Home, Self-Care 01 Condition: Good Clinical Impression: Strain of ankle, right Qualifiers: Encounter type: initial encounter Qualified Code(s): S96.911A - Strain of unspecified muscle and tendon at ankle and foot level, right foot, initial encounter - Discharge Information *PRESCRIPTION DRUG MONITORING PROGRAM REVIEWED*: No *COPY OF PRESCRIPTION DRUG MONITORING REPORT IN PATIENT CLEO: No Instructions: How to Use a Stirrup Ankle Brace, [id number], How to Use Cold Therapy, [id number], Ankle Sprain, [id number], Elastic Bandage and RICE Therapy Forms: ED Department Discharge Additional Instructions: May use to ice to the area as tolerated Wear splint to ankle while at work and when up and around May use Tylenol and/or Ibuprofen as directed Follow up with your primary care facility in 2 weeks if no improvement Sepsis Event Note (ED) - Evaluation Sepsis Screening Result: No Definite Risk - Focused Exam Vital Signs: Vital Signs Temp Pulse Resp BP Pulse Ox 06/11/20 19:04 97.8 F 80 16 121/70 97
== END 2020-06-11 19:56 | disposition home or self-care (01) ==
LOC: DL.ED 18:54
DX: S96.911A Strain of unspecified muscle and tendon at ankle and foot level, right foot, initial encounter (principal); E11.9 Type 2 diabetes mellitus without complications; E66.9 Obesity, unspecified; Z79.84 Long term (current) use of oral hypoglycemic drugs; Z88.0 Allergy status to penicillin; Z88.4 Allergy status to anesthetic agent; Z79.899 Other long term (current) drug therapy; Z68.42 Body mass index [BMI] 45.0-49.9, adult; X58.XXXA Exposure to other specified factors, initial encounter
CPT/HCPCS: 73610-RT; 99282; 99283

== ENCOUNTER 2020-07-12 19:36 | Emergency (ER) | payer OTHER ==
[2020-07-12 20:32] VITALS: BP 131/78; PULSE 83
--- NOTE | 2020-07-12 20:44 | EDM.PDOCBH ---
ED HPI GENERAL MEDICAL PROBLEM - General Chief Complaint: Behavioral/Psych Stated Complaint: ANXIETY Time Seen by Provider: 07/12/20 20:25 Source of Information: Reports: Patient History Limitations: Reports: No Limitations - History of Present Illness INITIAL COMMENTS - FREE TEXT/NARRATIVE: This 35 yo female patient reports to the ED due to an anxiety attack. The patient reports she has been having increased anxiety over the past 2-3 days, but today she found out that her aunt . The patient reports she felt very hot while at home, could not breath and felt like she could not drink. The patient reports she has been having a difficult time with her foot due to bone spurs for which she has been seeing a seed yeast operator. The patient reports she does have an appointment with Behavioral Health in about 2 weeks. Onset: Today Duration: Intermittent Location: Reports: Generalized Quality: Reports: Other Severity: Moderate Improves with: Reports: None Worsens with: Reports: None Context: Reports: Other Associated Symptoms: Reports: No Other Symptoms - Related Data Allergies Allergy/AdvReac Type Severity Reaction Status Date / Time lidocaine Allergy Intermediate Nausea and Verified 07/12/20 20:28 Vomiting Penicillins Allergy Intermediate Rash Verified 07/12/20 20:28 Home Meds: Home Meds Acetaminophen [Tylenol] 650 mg PO Q6H PRN 07/21/17 [History] Fluticasone Propionate [Flonase] 2 sprays NASBOTH Q6HR PRN 12/30/19 [History] Levothyroxine Sodium [Synthroid] 75 mcg PO DAILY 12/30/19 [History] Loratadine [Alavert] 10 mg PO Q12HR PRN 12/30/19 [History] lisinopriL [Lisinopril] 10 mg PO DAILY 12/30/19 [History] metFORMIN HCl [Metformin HCl] 1,000 mg PO DAILY 12/30/19 [History] Buprenorphine/Naloxone [Buprenorphine-Naloxone 8 MG-2 MG] 1 tab PO DAILY 06/11/20 [History] Past Medical History - Past Health History Medical/Surgical History: Denies Medical/Surgical History HEENT History: Reports: Impaired Vision Other HEENT History: WEARS CONTACT LENS Cardiovascular History: Reports: Other (See Below) Other Cardiovascular History: preeclampsia Respiratory History: Reports: None Gastrointestinal History: Reports: GERD Genitourinary History: Reports: None DIRECTOR LEARNING History: Reports: , Other (See Below) Other DIRECTOR LEARNING History: first , infant shortly after Musculoskeletal History: Reports: None Neurological History: Reports: Headaches, Chronic Psychiatric History: Reports: None Endocrine/Metabolic History: Reports: Diabetes, Type II, Obesity/BMI 30+ Hematologic History: Reports: None Immunologic History: Reports: None Oncologic (Cancer) History: Reports: None Dermatologic History: Reports: None - Infectious Disease History Infectious Disease History: Reports: Chicken Pox - Past Surgical History Head Surgeries/Procedures: Reports: None HEENT Surgical History: Reports: Oral Surgery Other HEENT Surgeries/Procedures: root canal "in my early 20s" Had lidocaine reaction. Cardiovascular Surgical History: Reports: None Respiratory Surgical History: Reports: None GI Surgical History: Reports: None Female Surgical History: Reports: Section Endocrine Surgical History: Reports: None Neurological Surgical History: Reports: None Musculoskeletal Surgical History: Reports: Carpal Tunnel, Other (See Below) Other Musculoskeletal Surgeries/Procedures:: CORTISONE INJECTION FOR CARPAL TUNNEL Oncologic Surgical History: Reports: None Dermatological Surgical History: Reports: None Social & Family History - Family History Family Medical History: Noncontributory - Caffeine Use Caffeine Use: Reports: Coffee Caffeine Use Comment: APPROX 12 PK DAILY OF SODA POP, 2-3 CUPS COFFEE DAILY - Living Situation & Occupation Living situation: Reports: with Family Occupation: Employed ED ROS GENERAL - Review of Systems Review Of Systems: Comprehensive ROS is negative, except as noted in HPI. ED EXAM, BEHAVIORAL HEALTH - Physical Exam Exam: See Below Exam Limited By: No Limitations General Appearance: Alert, WD/WN, Moderate Distress, Obese Eye Exam: Bilateral Eye: EOMI, Normal Inspection, PERRL Ears: Normal External Exam, Normal Canal, Hearing Grossly Normal, Normal TMs Nose: Normal Inspection, Normal Mucosa, No Blood Throat/Mouth: Normal Inspection, Normal Lips, Normal Teeth, Normal Gums, Normal Oropharynx, Normal Voice, No Airway Compromise Head: Atraumatic, Normocephalic Neck: Normal Inspection, Supple, Non-Tender, Full Range of Motion Respiratory/Chest: No Respiratory Distress, Lungs Clear, Normal Breath Sounds, No Accessory Muscle Use, Chest Non-Tender Cardiovascular: Normal Peripheral Pulses, Regular Rate, Rhythm, No Edema, No Gallop, No JVD, No Murmur, No Rub GI/Abdominal: Normal Bowel Sounds, Soft, Non-Tender, No Organomegaly, No Distention, No Abnormal Bruit, No Mass, Other (obese) (Female) Exam: Deferred Rectal (Female) Exam: Deferred Back Exam: Normal Inspection, Full Range of Motion, NT Extremities: Normal Inspection, Normal Range of Motion, Non-Tender, Normal Capillary Refill, No Pedal Edema Neurological: Alert, CN II-XII Intact, Normal Cognition, Normal Gait, Normal Reflexes, No Motor/Sensory Deficits, Oriented x 3 Psychiatric: Alert, Depressed Mood, Tearful Skin Exam: Warm, Dry, Intact, Normal color, No rash COURSE, BEHAVIORAL HEALTH COMP - Course Vital Signs: Last Vital Signs Temp 36.3 C 07/12/20 20:28 Pulse 83 07/12/20 20:28 Resp 18 07/12/20 20:28 BP 131/78 07/12/20 20:28 Pulse Ox 99 07/12/20 20:28 Orders, Labs, Meds: Active Orders 24 hr Category Date Time Status CORONAVIRUS COVID-19 RAPID [MOLEC] Urgent Lab 07/12/20 20:41 Received Laboratory Tests 07/12/20 Range/Units 20:41 SARS CoV-2 RNA Rapid ANGEL Negative (NEGATIVE) Departure - Departure Time of Disposition: 21:01 Disposition: Home, Self-Care 01 Condition: Fair Clinical Impression: Acute anxiety - Discharge Information *PRESCRIPTION DRUG MONITORING PROGRAM REVIEWED*: Not Applicable *COPY OF PRESCRIPTION DRUG MONITORING REPORT IN PATIENT CLEO: Not Applicable Instructions: Managing Anxiety, Adult, Supporting Someone With Anxiety Forms: ED Department Discharge Care Plan Goals: The patient was advised of the examination and lab results during the visit. The patient was encouraged to call [facility] in the morning for continued evaluation and further treatment. If the patient has any additional symptoms or concerns, the patient should either return to the emergency department or visit her primary care facility. Sepsis Event Note (ED) - Evaluation Sepsis Screening Result: No Definite Risk - Focused Exam Vital Signs: Vital Signs Temp Pulse Resp BP Pulse Ox 07/12/20 20:28 36.3 C 83 18 131/78 99 - My Orders Last 24 Hours: My Active Orders 07/12/20 20:41 CORONAVIRUS COVID-19 RAPID [MOLEC] Urgent - Assessment/Plan Last 24 Hours: My Active Orders 07/12/20 20:41 CORONAVIRUS COVID-19 RAPID [MOLEC] Urgent
== END 2020-07-12 21:08 | disposition home or self-care (01) ==
LOC: DL.ED 19:36
DX: F41.9 Anxiety disorder, unspecified (principal); E11.9 Type 2 diabetes mellitus without complications; E66.9 Obesity, unspecified; Z68.42 Body mass index [BMI] 45.0-49.9, adult; Z20.828 Contact with and (suspected) exposure to other viral communicable diseases; Z88.4 Allergy status to anesthetic agent; Z88.0 Allergy status to penicillin; Z79.84 Long term (current) use of oral hypoglycemic drugs; Z79.899 Other long term (current) drug therapy
CPT/HCPCS: 99283; U0002

== ENCOUNTER 2020-07-17 19:31 | Emergency (ER) | payer OTHER ==
[2020-07-17 20:17] VITALS: BP 129/77; PULSE 63
[2020-07-17] MEDS ORDERED: Ketorolac 30 MG/ML SDV IM ONE (20:33)
[2020-07-17] MEDS ORDERED: Orphenadrine 60 MG/2 ML Inj IM ONE (20:33)
[2020-07-17] MEDS ORDERED: Dexamethasone 4 MG/ML SDV IM ONE (20:33)
--- NOTE | 2020-07-17 21:16 | CR ---
PROCEDURE INFORMATION: Exam: XR Lumbosacral Spine, 2 or 3 Views Exam date and time: 07/17/2020 8:35 PM Age: 35 years old Clinical indication: Low back pain; Additional info: Injury, pain TECHNIQUE: Imaging protocol: XR of the lumbosacral spine, 2 or 3 views. COMPARISON: No relevant prior studies available. FINDINGS: Bones/joints: Normal. No acute fracture. Normal alignment. Soft tissues: Unremarkable. IMPRESSION: No acute findings.
--- NOTE | 2020-07-17 21:24 | EDM.PDOC ---
ED HPI GENERAL MEDICAL PROBLEM - General Chief Complaint: Back Pain or Injury Stated Complaint: SMALL OF BACK PULL MUSCLE. ELENA Time Seen by Provider: 07/17/20 20:30 Source of Information: Reports: Patient, RN, RN Notes Reviewed History Limitations: Reports: No Limitations - History of Present Illness INITIAL COMMENTS - FREE TEXT/NARRATIVE: Patient presents to ER with complaint of low back pain. Patient states she has been wearing a boot on the right foot which makes her feel "off kilter". 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 Patient states she was cleaning a bathtub, set up and felt a pop in the low back. Patient is crying in pain, rates pain 8/10. Patient denies numbness or tingling to the extremities, saddle anesthesia, incontinence of bowel or bladder, or shooting pain down the legs. Onset: Today, Sudden Lower Back Pain Score (Numeric/FACES): 9 - Related Data Allergies Allergy/AdvReac Type Severity Reaction Status Date / Time lidocaine Allergy Intermediate Nausea and Verified 07/12/20 20:28 Vomiting Penicillins Allergy Intermediate Rash Verified 07/12/20 20:28 Home Meds: Home Meds Acetaminophen [Tylenol] 650 mg PO Q6H PRN 07/21/17 [History] Fluticasone Propionate [Flonase] 2 sprays NASBOTH Q6HR PRN 12/30/19 [History] Levothyroxine Sodium [Synthroid] 75 mcg PO DAILY 12/30/19 [History] Loratadine [Alavert] 10 mg PO Q12HR PRN 12/30/19 [History] lisinopriL [Lisinopril] 10 mg PO DAILY 12/30/19 [History] metFORMIN HCl [Metformin HCl] 1,000 mg PO DAILY 12/30/19 [History] Buprenorphine/Naloxone [Buprenorphine-Naloxone 8 MG-2 MG] 1 tab PO DAILY 06/11/20 [History] Ibuprofen [Motrin] 800 mg PO 07/17/20 [History] Past Medical History - Past Health History Medical/Surgical History: Denies Medical/Surgical History HEENT History: Reports: Impaired Vision Other HEENT History: WEARS CONTACT LENS Cardiovascular History: Reports: Other (See Below) Other Cardiovascular History: preeclampsia Respiratory History: Reports: None Gastrointestinal History: Reports: GERD Genitourinary History: Reports: None FIRMWARE DEVELOPER History: Reports: , Other (See Below) Other FIRMWARE DEVELOPER History: first , shortly after Musculoskeletal History: Reports: None Neurological History: Reports: Headaches, Chronic Psychiatric History: Reports: None Endocrine/Metabolic History: Reports: Diabetes, Type II, Obesity/BMI 30+ Hematologic History: Reports: None Immunologic History: Reports: None Oncologic (Cancer) History: Reports: None Dermatologic History: Reports: None - Infectious Disease History Infectious Disease History: Reports: Chicken Pox - Past Surgical History Head Surgeries/Procedures: Reports: None HEENT Surgical History: Reports: Oral Surgery Other HEENT Surgeries/Procedures: root canal "in my early 20s" Had lidocaine reaction. Cardiovascular Surgical History: Reports: None Respiratory Surgical History: Reports: None GI Surgical History: Reports: None Female Surgical History: Reports: Section Endocrine Surgical History: Reports: None Neurological Surgical History: Reports: None Musculoskeletal Surgical History: Reports: Carpal Tunnel, Other (See Below) Other Musculoskeletal Surgeries/Procedures:: CORTISONE INJECTION FOR CARPAL TUNNEL Oncologic Surgical History: Reports: None Dermatological Surgical History: Reports: None Social & Family History - Family History Family Medical History: Noncontributory - Tobacco Use Tobacco Use Status *Q: Never Tobacco User Second Hand Smoke Exposure: No - Caffeine Use Caffeine Use: Reports: Soda Caffeine Use Comment: APPROX 12 PK DAILY OF SODA POP, 2-3 CUPS COFFEE DAILY - Recreational Drug Use Recreational Drug Use: No - Living Situation & Occupation Living situation: Reports: with Family Occupation: Employed ED ROS GENERAL - Review of Systems Review Of Systems: Comprehensive ROS is negative, except as noted in HPI. ED EXAM,LOWER BACK PAIN/INJURY - Physical Exam Exam: See Below Exam Limited By: No Limitations General Appearance: Alert, WD/WN, Mild Distress Eye Exam: Bilateral Eye: EOMI, Normal Inspection Ears: Normal External Exam, Hearing Grossly Normal Nose: Normal Inspection Throat/Mouth: Normal Inspection, Normal Voice, No Airway Compromise Head: Atraumatic, Normocephalic Neck: Normal Inspection, Supple, Non-Tender, Full Range of Motion Respiratory/Chest: No Respiratory Distress, Lungs Clear, Normal Breath Sounds, No Accessory Muscle Use, Chest Non-Tender, Decreased Breath Sounds Cardiovascular: Normal Peripheral Pulses, Regular Rate, Rhythm, No Edema, No Gallop, No JVD, No Murmur, No Rub GI/Abdominal: Normal Bowel Sounds, Soft, Non-Tender (Female) Exam: Deferred Rectal (Female) Exam: Deferred Back Exam: Decreased Range of Motion, Muscle Spasm, Paraspinal Tenderness, Vertebral Tenderness Extremities: Normal Inspection, Normal Range of Motion, Non-Tender, No Pedal Edema, Normal Capillary Refill Neurological: Alert, Normal Mood/Affect, Normal Dorsiflexion, CN II-XII Intact, Normal Plantar Flexion, Normal Gait, Normal Reflexes, No Motor/Sensory Deficits, Oriented x 3 Psychiatric: Normal Affect, Normal Mood, Tearful Skin Exam: Warm, Dry, Intact, Normal Color, No Rash Lymphatic: No Adenopathy Course - Vital Signs Last Recorded V/S: Last Vital Signs Temp 97.1 F 07/17/20 20:11 Pulse 63 07/17/20 20:11 Resp 16 07/17/20 20:11 BP 129/77 07/17/20 20:11 Pulse Ox 97 07/17/20 20:11 - Orders/Labs/Meds Meds: Medications Discontinued Medications Generic Name Dose Route Start Last Admin Trade Name Iam PRN Reason Stop Dose Admin Dexamethasone 10 mg 07/17/20 20:33 07/17/20 20:55 Decadron IM 07/17/20 20:34 10 mg ONETIME ONE Administration Ketorolac Tromethamine 30 mg 07/17/20 20:33 07/17/20 20:56 Toradol IM 07/17/20 20:34 30 mg ONETIME ONE Administration Orphenadrine Citrate 60 mg 07/17/20 20:33 07/17/20 20:56 Norflex IM 07/17/20 20:34 60 mg ONETIME ONE Administration - Radiology Interpretation Free Text/Narrative:: Lumbar spine xray: PROCEDURE INFORMATION: Exam: XR Lumbosacral Spine, 2 or 3 Views Exam date and time: 07/17/2020 8:35 PM Age: 35 years old Clinical indication: Low back pain; Additional info: Injury, pain TECHNIQUE: Imaging protocol: XR of the lumbosacral spine, 2 or 3 views. COMPARISON: No relevant prior studies available. FINDINGS: Bones/joints: Normal. No acute fracture. Normal alignment. Soft tissues: Unremarkable. IMPRESSION: No acute findings. Thank you for allowing us to participate in the care of your patient. Dictated and Authenticated by: Darell Fung MD 07/17/2020 9:16 PM Central Time ([place] & [place]) See rad report Departure - Departure Time of Disposition: 21:24 Disposition: Home, Self-Care 01 Condition: Fair Clinical Impression: Low back pain Qualifiers: Chronicity: acute Back pain laterality: midline Sciatica presence: without sciatica Qualified Code(s): M54.5 - Low back pain - Discharge Information *PRESCRIPTION DRUG MONITORING PROGRAM REVIEWED*: No *COPY OF PRESCRIPTION DRUG MONITORING REPORT IN PATIENT CLEO: No Instructions: Back Injury Prevention, [id number], Muscle Strain, [id number], Back Exercises, [id number] Forms: ED Department Discharge Additional Instructions: May use [id number] lidocaine patches for the back, may be bought at [email or web address] your local pharmacy May use Tylenol and/or Ibuprofen as directed for pain RX: Cyclobenzaprine DO NOT DRIVE WHILE TAKING CYCLOBENZAPRINE Follow up with your primary care facility for further referral to PT May use heat and ice to the back as tolerated Sepsis Event Note (ED) - Evaluation Sepsis Screening Result: No Definite Risk - Focused Exam Vital Signs: Vital Signs Temp Pulse Resp BP Pulse Ox 07/17/20 20:11 97.1 F 63 16 129/77 97
== END 2020-07-17 21:55 | disposition home or self-care (01) ==
LOC: DL.ED 19:31
DX: M54.5 Low back pain (principal); E11.9 Type 2 diabetes mellitus without complications; E66.9 Obesity, unspecified; Z79.84 Long term (current) use of oral hypoglycemic drugs; Z88.0 Allergy status to penicillin; Z88.4 Allergy status to anesthetic agent; Z79.899 Other long term (current) drug therapy
CPT/HCPCS: 72100; 96372; 99283; J1100; J1885; J2360

== ENCOUNTER 2020-10-05 17:41 | Emergency (ER) | payer OTHER ==
[2020-10-05 18:18] VITALS: BP 115/72; PULSE 83
--- NOTE | 2020-10-05 20:10 | CR ---
PROCEDURE INFORMATION: Exam: XR Abdomen, 1 View Exam date and time: 10/05/2020 7:48 PM Age: 35 years old Clinical indication: Other: Bloating, back pain; Additional info: Bloating back pain TECHNIQUE: Imaging protocol: XR of the abdomen. Views: Frontal supine view of the abdomen. 1 View. COMPARISON: No relevant prior studies available. FINDINGS: Gastrointestinal tract: Normal. No bowel dilation. Bones/joints: Degenerative lumbar spine change and dextroscoliosis.. IMPRESSION: 1. No acute findings. 2. No bowel obstruction or dilatation. 3. Degenerative lumbar spine disease and dextroscoliosis.
--- NOTE | 2020-10-05 20:22 | EDM.PDOC ---
ED HPI GENERAL MEDICAL PROBLEM - General Chief Complaint: Genitourinary Problem Stated Complaint: UTI, STOMACH Time Seen by Provider: 10/05/20 19:10 Source of Information: Reports: Patient, RN History Limitations: Reports: No Limitations - History of Present Illness INITIAL COMMENTS - FREE TEXT/NARRATIVE: ED with c/o urinary frequency, back pain across low back for 2 weeks, No fever or chills. No vomiting. Reports feeling bloated but normal BM's. Started on prozac about same time as sx onset. 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: Reports: Other (see below) Other 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: Milk of Magnesia Back Pain Score (Numeric/FACES): 7 - Related Data Allergies Allergy/AdvReac Type Severity Reaction Status Date / Time lidocaine Allergy Intermediate Nausea and Verified 07/12/20 20:28 Vomiting Penicillins Allergy Intermediate Rash Verified 07/12/20 20:28 Home Meds: Home Meds Acetaminophen [Tylenol] 650 mg PO Q6H PRN 07/21/17 [History] Fluticasone Propionate [Flonase] 2 sprays NASBOTH Q6HR PRN 12/30/19 [History] Levothyroxine Sodium [Synthroid] 75 mcg PO DAILY 12/30/19 [History] Loratadine [Alavert] 10 mg PO Q12HR PRN 12/30/19 [History] lisinopriL [Lisinopril] 10 mg PO DAILY 12/30/19 [History] metFORMIN HCl [Metformin HCl] 1,000 mg PO DAILY 12/30/19 [History] Buprenorphine/Naloxone [Buprenorphine-Naloxone 8 MG-2 MG] 1 tab PO DAILY 06/11/20 [History] Ibuprofen [Motrin] 800 mg PO 07/17/20 [History] Past Medical History - Past Health History Medical/Surgical History: Denies Medical/Surgical History HEENT History: Reports: Impaired Vision Other HEENT History: WEARS CONTACT LENS Cardiovascular History: Reports: Other (See Below) Other Cardiovascular History: preeclampsia Respiratory History: Reports: None Gastrointestinal History: Reports: GERD Genitourinary History: Reports: None 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 GRADER History: Reports: , Other (See Below) Other BRICK GRADER History: first , shortly after Musculoskeletal History: Reports: None Neurological History: Reports: Headaches, Chronic Psychiatric History: Reports: None Endocrine/Metabolic History: Reports: Diabetes, Type II, Obesity/BMI 30+ Hematologic History: Reports: None Immunologic History: Reports: None Oncologic (Cancer) History: Reports: None Dermatologic History: Reports: None - Infectious Disease History Infectious Disease History: Reports: Chicken Pox - Past Surgical History Head Surgeries/Procedures: Reports: None HEENT Surgical History: Reports: Oral Surgery Other HEENT Surgeries/Procedures: root canal "in my early 20s" Had lidocaine reaction. Cardiovascular Surgical History: Reports: None Respiratory Surgical History: Reports: None GI Surgical History: Reports: None Female Surgical History: Reports: Section Endocrine Surgical History: Reports: None Neurological Surgical History: Reports: None Musculoskeletal Surgical History: Reports: Carpal Tunnel, Other (See Below) Other Musculoskeletal Surgeries/Procedures:: CORTISONE INJECTION FOR CARPAL TUNNEL Oncologic Surgical History: Reports: None Dermatological Surgical History: Reports: None Social & Family History - Family History Family Medical History: No Pertinent Family History - Tobacco Use Tobacco Use Status *Q: Former Tobacco User Used Tobacco, but Quit: Yes Month/Year Tobacco Last Used: 0 - Caffeine Use Caffeine Use: Reports: Coffee, Soda Caffeine Use Comment: APPROX 12 PK DAILY OF SODA POP, 2-3 CUPS COFFEE DAILY - Recreational Drug Use Recreational Drug Use: No - Living Situation & Occupation Living situation: Reports: with Family Occupation: Employed ED ROS GENERAL - Review of Systems Review Of Systems: Comprehensive ROS is negative, except as noted in HPI. ED EXAM, GI/ABD - Physical Exam Exam: See Below Exam Limited By: No Limitations General Appearance: Alert, No Apparent Distress, Obese Ears: Normal External Exam, Hearing Grossly Normal Nose: Normal Inspection Throat/Mouth: Normal Voice Head: Atraumatic, Normocephalic Neck: Normal Inspection Respiratory/Chest: No Respiratory Distress, Lungs Clear, Normal Breath Sounds Cardiovascular: Regular Rate, Rhythm GI/Abdominal Exam: Normal Bowel Sounds, Soft, Non-Tender Back Exam: Paraspinal Tenderness (low lumbar sacral). No: CVA Tenderness (L), CVA Tenderness (R) Neurological: Alert, Oriented, Normal Cognition, Normal Gait Psychiatric: Normal Affect Skin Exam: Warm, Dry, Intact, Normal Color Course - Vital Signs Last Recorded V/S: Last Vital Signs Temp 97.8 F 10/05/20 18:17 Pulse 83 10/05/20 18:17 Resp 18 10/05/20 18:17 BP 115/72 10/05/20 18:17 Pulse Ox 99 01/27/21 18:17 - Orders/Labs/Meds Labs: Laboratory Tests 10/05/20 10/05/20 Range/Units 18:13 18:13 Urine Color Yellow (YELLOW) Urine Appearance Clear (CLEAR) Urine pH 6.5 (5.0-9.0) Ur Specific [place] 1.025 (1.005-1.030) Urine Protein Negative (NEGATIVE) Urine Glucose (UA) Negative (NEGATIVE) Urine Ketones Negative (NEGATIVE) Urine Occult Blood Negative (NEGATIVE) Urine Nitrite Negative (NEGATIVE) Urine Bilirubin Negative (NEGATIVE) Urine Urobilinogen 0.2 (0.2-1.0) mg/dL Ur Leukocyte Esterase Negative (NEGATIVE) Urine HCG, Qual Negative Departure - Departure Time of Disposition: 20:20 Disposition: Home, Self-Care 01 Condition: Good Clinical Impression: Bloating symptom, Side effect of medication Low back pain Qualifiers: Chronicity: unspecified Back pain laterality: bilateral Sciatica presence: without sciatica Qualified Code(s): M54.5 - Low back pain - Discharge Information *PRESCRIPTION DRUG MONITORING PROGRAM REVIEWED*: No *COPY OF PRESCRIPTION DRUG MONITORING REPORT IN PATIENT CLEO: No Instructions: Abdominal Bloating Forms: ED Department Discharge Additional Instructions: increase fiber and fluids in diet miralax one capful daily in 8 ounces liquid follow up in clinic if not improving urgent follow up if symptoms worsen, fever and vomiting Sepsis Event Note (ED) - Evaluation Sepsis Screening Result: No Definite Risk - Focused Exam Vital Signs: Vital Signs Temp Pulse Resp BP Pulse Ox 10/05/20 18:17 97.8 F 83 18 115/72 99
== END 2020-10-05 20:27 | disposition home or self-care (01) ==
LOC: DL.ED 17:41
DX: M54.5 Low back pain (principal); T43.225A Adverse effect of selective serotonin reuptake inhibitors, initial encounter; E11.9 Type 2 diabetes mellitus without complications; E66.9 Obesity, unspecified; Z68.42 Body mass index [BMI] 45.0-49.9, adult; Z87.891 Personal history of nicotine dependence; Z88.4 Allergy status to anesthetic agent; Z88.0 Allergy status to penicillin; Z79.899 Other long term (current) drug therapy
CPT/HCPCS: 74018; 81003; 81025; 99283

== ENCOUNTER 2020-12-07 12:42 | Emergency (ER) | payer OTHER ==
[2020-12-07 13:32] VITALS: BP 125/7; PULSE 85
--- NOTE | 2020-12-07 14:14 | EDM.PDOC ---
<MarySyedGloria - Last Filed: 12/07/20 15:56> ED HPI GENERAL MEDICAL PROBLEM - General Chief Complaint: Abdominal Pain Stated Complaint: STOMACH PAIN FOR WEEKS Time Seen by Provider: 12/07/20 14:04 Source of Information: Reports: Patient History Limitations: Reports: No Limitations - History of Present Illness INITIAL COMMENTS - FREE TEXT/NARRATIVE: Patient is a 35 y.o. female who presents to the ED with concerns of abdominal pain. The patient reports her abdominal pain started approximately one month ago, but states her symptoms have greatly worsened over the past 5 days. She describes her pain as sharp and burning in the epigastric region and rates it an 8/10 today. Patient reports no association of pain to eating habits. The patient has chronic constipation, but 5 days ago she had abdominal pain and not produced a bowel movement for some time, so she took Mirilax. She had no relief of her symptoms, so took Mirilax the following day which still offered no relief. The patient tried Dulcolax and Milk of magnesia the following couple days and finally had a bowel movement two days. She also had a bowel movement yesterday and today. She denies any hematochezia, however, she states her stools were much darker the last 3 days. The patient has had no fever, chills, body aches, rhinorrhea, sore throat, cough, or recent illnesses. She denies chest pain, shortness of breath, dysuria, or hematuria. She has a history of abdominal surgeries: hernia and . She has had a few recent changes to her daily medications, but is unable to state what they were. Onset: Other (Ongoing for the last but, with worsening symtpoms in the last 5 days ) Duration: Intermittent Location: Reports: Abdomen Quality: Reports: Burning, Sharp Improves with: Reports: None Worsens with: Reports: None Associated Symptoms: Reports: No Other Symptoms Other Treatments PROPERTY VALUER: multiple laxatives Abdominal Pain Score (Numeric/FACES): 8 - Related Data Allergies Allergy/AdvReac Type Severity Reaction Status Date / Time lidocaine Allergy Intermediate Nausea and Verified 12/07/20 13:32 Vomiting Penicillins Allergy Intermediate Rash Verified 12/07/20 13:32 Home Meds: Home Meds Acetaminophen [Tylenol] 650 mg PO Q6H PRN 07/21/17 [History] Fluticasone Propionate [Flonase] 2 sprays NASBOTH Q6HR PRN 12/30/19 [History] Levothyroxine Sodium [Synthroid] 75 mcg PO DAILY 12/30/19 [History] Loratadine [Alavert] 10 mg PO Q12HR PRN 12/30/19 [History] lisinopriL [Lisinopril] 10 mg PO DAILY 12/30/19 [History] metFORMIN HCl [Metformin HCl] 1,000 mg PO DAILY 12/30/19 [History] Buprenorphine/Naloxone [Buprenorphine-Naloxone 8 MG-2 MG] 1 tab PO DAILY 06/11/20 [History] Ibuprofen [Motrin] 800 mg PO 07/17/20 [History] Past Medical History - Past Health History Medical/Surgical History: Denies Medical/Surgical History HEENT History: Reports: Impaired Vision Other HEENT History: WEARS CONTACT LENS Cardiovascular History: Reports: Other (See Below) Other Cardiovascular History: preeclampsia Respiratory History: Reports: None Gastrointestinal History: Reports: GERD Genitourinary History: Reports: None 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: , Other (See Below) Other SEWER PIPE SORTER History: first , shortly after Musculoskeletal History: Reports: None Neurological History: Reports: Headaches, Chronic Psychiatric History: Reports: None Endocrine/Metabolic History: Reports: Diabetes, Type II, Obesity/BMI 30+ Hematologic History: Reports: None Immunologic History: Reports: None Oncologic (Cancer) History: Reports: None Dermatologic History: Reports: None - Infectious Disease History Infectious Disease History: Reports: Chicken Pox - Past Surgical History Head Surgeries/Procedures: Reports: None HEENT Surgical History: Reports: Oral Surgery Other HEENT Surgeries/Procedures: root canal "in my early 20s" Had lidocaine reaction. Cardiovascular Surgical History: Reports: None Respiratory Surgical History: Reports: None GI Surgical History: Reports: None Female Surgical History: Reports: Section Endocrine Surgical History: Reports: None Neurological Surgical History: Reports: None Musculoskeletal Surgical History: Reports: Carpal Tunnel, Other (See Below) Other Musculoskeletal Surgeries/Procedures:: CORTISONE INJECTION FOR CARPAL TUNNEL Oncologic Surgical History: Reports: None Dermatological Surgical History: Reports: None Social & Family History - Family History Family Medical History: No Pertinent Family History - Tobacco Use Tobacco Use Status *Q: Never Tobacco User Second Hand Smoke Exposure: No - Caffeine Use Caffeine Use: Reports: Coffee, Soda Caffeine Use Comment: APPROX 12 PK DAILY OF SODA POP, 2-3 CUPS COFFEE DAILY - Recreational Drug Use Recreational Drug Use: No - Living Situation & Occupation Living situation: Reports: with Family Occupation: Employed ED ROS GENERAL - Review of Systems Review Of Systems: See Below Constitutional: Reports: No Symptoms HEENT: Reports: No Symptoms Respiratory: Reports: No Symptoms Cardiovascular: Reports: No Symptoms Endocrine: Reports: No Symptoms (states blood sugar levels have been well-c ontrolled ) GI/Abdominal: Reports: Abdominal Pain, Constipation (reports she has had multiple dark colored stools the past 3 days ). Denies: Bloody Stool, Diarrhea, Mucous in Stool, Nausea, Vomiting : Reports: No Symptoms. Denies: Discharge, Dysuria, Hematuria Musculoskeletal: Reports: Back Pain (pain is chronic ) Skin: Reports: No Symptoms Neurological: Reports: No Symptoms Psychiatric: Reports: No Symptoms Hematologic/Lymphatic: Reports: No Symptoms Immunologic: Reports: No Symptoms ED EXAM, GI/ABD - Physical Exam Exam: See Below Exam Limited By: No Limitations General Appearance: Alert, WD/WN, No Apparent Distress, Obese Eyes: Bilateral: Normal Appearance, EOMI Ears: Normal External Exam Nose: Normal Inspection, Normal Mucosa, No Blood Throat/Mouth: Normal Inspection, Normal Lips, Normal Teeth, Normal Gums, Normal Oropharynx, Normal Voice, No Airway Compromise Head: Atraumatic, Normocephalic Neck: Normal Inspection, Supple, Non-Tender, Full Range of Motion Respiratory/Chest: No Respiratory Distress, Lungs Clear, Normal Breath Sounds, No Accessory Muscle Use, Chest Non-Tender Cardiovascular: Normal Peripheral Pulses, Regular Rate, Rhythm, No Edema, No Gallop, No JVD, No Murmur, No Rub GI/Abdominal Exam: Normal Bowel Sounds, Soft, No Distention, No Abnormal Bruit, No Mass, Pelvis Stable, Tender (tenderness in the epigastric and right upper quadrant; no guarding, or rebound tenderness ), Other (abdomen is obese; patient has a large midline abdominal hernia, approximately 10 cm in diamter-no bowel sounds appreciated in the hernia or overlying skin changes ) (Female) Exam: Deferred Rectal (Female) Exam: Deferred Back Exam: Normal Inspection, Full Range of Motion, NT Extremities: Normal Inspection, Normal Range of Motion, Non-Tender, Normal Capillary Refill, No Pedal Edema Neurological: Alert, Oriented, CN II-XII Intact, Normal Cognition, Normal Gait, Normal Reflexes, No Motor/Sensory Deficits Psychiatric: Normal Affect, Tearful Skin Exam: Warm, Dry, Intact, Normal Color, No Rash Lymphatic: No Adenopathy Course - Radiology Interpretation Free Text/Narrative:: Abdomen Pelvis w Contrast: -Large soft tissue pannus lower anterior abdominal wall with midline ventral wall hernia into the adipose tissues (apparenet incarceration ofa small bowel loop) without associated, current signs of mechanical bowel obstruction. -Small volume urinary bladder with uniformly thick wall suggesting possibility of chronic cystitis -Small calcified uterine fibroid dome of the retroverted uterus. -CONCLUSION: Ventral wall hernia. Uterine Fibroid No sign of mechanical bowel obstruction, intra-abdominal malignancy or acute peritonitis. Octavio Galan MD - Re-Assessments/Exams Free Text/Narrative Re-Assessment/Exam: Reviewed the patient's labs and CT results. The patient has an elevated WBC of 13.9; however, she has no clinical symptoms or physical exam findings consistent with infection. The patients CT scan findings included a ventral wall hernia and uterine fibroid; however, no signs of mechanical bowel obstruction, acute appendicitis, or signs of incarcerated bowel. Urine Analysis was negative for leukocytes or nitrites. The patient does have a large amount of stool in the large colon which may be contributing to her elevated WBC. 12/07/20 16:00 Departure - Departure Time of Disposition: 15:50 Disposition: Home, Self-Care 01 Condition: Good Clinical Impression: Ventral hernia without obstruction or gangrene Constipation Qualifiers: Constipation type: other constipation type Qualified Code(s): K59.09 - Other constipation - Discharge Information *PRESCRIPTION DRUG MONITORING PROGRAM REVIEWED*: No *COPY OF PRESCRIPTION DRUG MONITORING REPORT IN PATIENT CLEO: No Instructions: Constipation, Adult, High-Fiber Diet, Hernia, Adult Forms: ED Department Discharge Additional Instructions: Rx: Lactulose High fiber diet. Follow up in clinic if not improved in 1 to 2 days. Care Plan Goals: Discussed the physical exam, lab results, and CT findings with the patient. Patient was give a dose of lactulose and Dulcolax in the ED prior to discharge. Rx: Lactulose Rx: Dulcolax Patient needs to increase fluid intake and fiber in diet. Follow up with primary care provider for a referral regarding ventral wall hernia. Follow up in the ED if symptoms worsen or you develop any new symptoms. Sepsis Event Note (ED) - Evaluation Sepsis Screening Result: No Definite Risk <Joni Lackey - Last Filed: 12/07/20 16:11> Course - Vital Signs Last Recorded V/S: Last Vital Signs Temp 96.1 F L 12/07/20 13:25 Pulse 85 12/07/20 13:25 Resp BP 125/7 L 12/07/20 13:25 Pulse Ox 99 12/07/20 13:25 - Orders/Labs/Meds Orders: Active Orders 24 hr Category Date Time Status Peripheral IV Care [RC] . DIRECTED Care 12/07/20 14:31 Active Sodium Chloride 0.9% [Saline Flush] Med 12/07/20 14:31 Active 10 ml FLUSH ASDIRECTED PRN Peripheral IV Insertion Adult [OM.PC] Stat Oth 12/07/20 14:31 Ordered Medication Orders Sodium Chloride (Sodium Chloride 0.9% 10 Ml Syringe) 10 ml FLUSH ASDIRECTED PRN PRN Reason: Keep Vein Open Last Admin: 12/07/20 14:44 Dose: 10 ml Documented by: MELONY Labs: Laboratory Tests 12/07/20 12/07/20 12/07/20 Range/Units 14:08 14:08 14:08 WBC 13.9 H (5.0-10.0) 10^3/uL RBC 5.26 (4.2-5.4) 10^6/uL Hgb 14.5 D (12.0-16.0) g/dL Hct 45.2 (37.0-47.0) % MCV 85.9 (80-100) fL MCH 27.6 (27.0-34.0) pg MCHC 32.1 L (33.0-35.0) g/dL Plt Count 346 D (150-450) 10^3/uL Neut % (Auto) 71.5 (42.2-75.2) % Lymph % (Auto) 22.2 (20.5-50.1) % [place] % (Auto) 5.7 (2-8) % Eos % (Auto) 0.5 L (1.0-3.0) % Baso % (Auto) 0.1 (0.0-1.0) % Add Manual Diff Yes Neutrophils % (Manual) 65 (42-75) % Band Neutrophils % 1 % Lymphocytes % (Manual) 30 (20-50) % Monocytes % (Manual) 4 (2-8) % Platelet Estimate Adequate Sodium 137 (136-145) mmol/L Potassium 4.3 (3.5-5.1) mmol/L Chloride 100 (98-107) mmol/L Carbon Dioxide 31 (21-32) mmol/L Anion Gap 10.3 (7-13) mEq/L BUN 16 (7-18) mg/dL Creatinine 0.81 (0.55-1.02) mg/dL Est Cr Clr Drug Dosing 94.27 mL/min Estimated GFR (MDRD) > 60 BUN/Creatinine Ratio 19.8 (No establ ref range) Glucose 115 H (74-99) mg/dL Lactic Acid 0.6 (0.4-2.0) mmol/L Calcium 8.8 (8.5-10.1) mg/dL Total Bilirubin 0.6 (0.2-1.0) mg/dL AST 13 L (15-37) U/L ALT 41 (14-59) U/L Alkaline Phosphatase 68 (46-116) U/L Total Protein 8.6 H (6.4-8.2) g/dL Albumin 3.5 (3.4-5.0) g/dL Globulin 5.1 Albumin/Globulin Ratio 0.7 Amylase 36 (25-115) U/L Lipase 93 (73-393) U/L HCG, Qual Urine Color (YELLOW) Urine Appearance (CLEAR) Urine pH (5.0-9.0) Ur Specific [place] (1.005-1.030) Urine Protein (NEGATIVE) Urine Glucose (UA) (NEGATIVE) Urine Ketones (NEGATIVE) Urine Occult Blood (NEGATIVE) Urine Nitrite (NEGATIVE) Urine Bilirubin (NEGATIVE) Urine Urobilinogen (0.2-1.0) mg/dL Ur Leukocyte Esterase (NEGATIVE) 12/07/20 12/07/20 Range/Units 14:08 15:04 WBC (5.0-10.0) 10^3/uL RBC (4.2-5.4) 10^6/uL Hgb (12.0-16.0) g/dL Hct (37.0-47.0) % MCV (80-100) fL MCH (27.0-34.0) pg MCHC (33.0-35.0) g/dL Plt Count (150-450) 10^3/uL Neut % (Auto) (42.2-75.2) % Lymph % (Auto) (20.5-50.1) % [place] % (Auto) (2-8) % Eos % (Auto) (1.0-3.0) % Baso % (Auto) (0.0-1.0) % Add Manual Diff Neutrophils % (Manual) (42-75) % Band Neutrophils % % Lymphocytes % (Manual) (20-50) % Monocytes % (Manual) (2-8) % Platelet Estimate Sodium (136-145) mmol/L Potassium (3.5-5.1) mmol/L Chloride (98-107) mmol/L Carbon Dioxide (21-32) mmol/L Anion Gap (7-13) mEq/L BUN (7-18) mg/dL Creatinine (0.55-1.02) mg/dL Est Cr Clr Drug Dosing mL/min Estimated GFR (MDRD) BUN/Creatinine Ratio (No establ ref range) Glucose (74-99) mg/dL Lactic Acid (0.4-2.0) mmol/L Calcium (8.5-10.1) mg/dL Total Bilirubin (0.2-1.0) mg/dL AST (15-37) U/L ALT (14-59) U/L Alkaline Phosphatase (46-116) U/L Total Protein (6.4-8.2) g/dL Albumin (3.4-5.0) g/dL Globulin Albumin/Globulin Ratio Amylase (25-115) U/L Lipase (73-393) U/L HCG, Qual Negative Urine Color Yellow (YELLOW) Urine Appearance Clear (CLEAR) Urine pH 6.0 (5.0-9.0) Ur Specific [place] 1.025 (1.005-1.030) Urine Protein Negative (NEGATIVE) Urine Glucose (UA) Negative (NEGATIVE) Urine Ketones Negative (NEGATIVE) Urine Occult Blood Negative (NEGATIVE) Urine Nitrite Negative (NEGATIVE) Urine Bilirubin Negative (NEGATIVE) Urine Urobilinogen 0.2 (0.2-1.0) mg/dL Ur Leukocyte Esterase Negative (NEGATIVE) Meds: Medications Generic Name Dose Route Start Last Admin Trade Name Freq PRN Reason Stop Dose Admin Sodium Chloride 10 ml 12/07/20 14:31 12/07/20 14:44 Sodium Chloride 0.9% 10 Ml Syringe FLUSH 10 ml ASDIRECTED PRN Administration Keep Vein Open Discontinued Medications Generic Name Dose Route Start Last Admin Trade Name Freq PRN Reason Stop Dose Admin Bisacodyl 10 mg 12/07/20 15:49 12/07/20 16:07 Bisacodyl 5 Mg Tab PO 12/07/20 15:50 10 mg ONETIME ONE Administration Sodium Chloride 1,000 mls @ 999 mls/hr 12/07/20 14:31 12/07/20 14:44 Normal Saline IV 12/07/20 15:31 999 mls/hr .BOLUS ONE Administration Iopamidol 100 ml 12/07/20 14:46 12/07/20 15:08 Iopamidol 612 Mg/Ml 100 Ml Bottle IVPUSH 12/07/20 14:47 100 ml ONETIME ONE Administration Iopamidol 50 ml 12/07/20 14:46 Iopamidol 612 Mg/Ml 50 Ml Sdv IVPUSH 12/07/20 14:47 ONETIME ONE Lactulose 40 gm 12/07/20 15:48 12/07/20 16:05 Lactulose Soln 10 Gm/15 Ml 30 Ml Ud Cup PO 12/07/20 15:49 40 gm ONETIME ONE Administration - Re-Assessments/Exams Free Text/Narrative Re-Assessment/Exam: 12/07/20 I personally performed or re-performed the physical examination and medical decision making. I have verified all student documentation or findings, including history, physical exam and/or medical decision making. Sepsis Event Note (ED) - Focused Exam Vital Signs: Vital Signs Temp Pulse BP Pulse Ox 12/07/20 13:25 96.1 F L 85 125/7 L 99 - My Orders Last 24 Hours: My Active Orders 12/07/20 14:31 Peripheral IV Care [RC] . DIRECTED Sodium Chloride 0.9% [Saline Flush] 10 ml FLUSH ASDIRECTED PRN Peripheral IV Insertion Adult [OM.PC] Stat - Assessment/Plan Last 24 Hours: My Active Orders 12/07/20 14:31 Peripheral IV Care [RC] . DIRECTED Sodium Chloride 0.9% [Saline Flush] 10 ml FLUSH ASDIRECTED PRN Peripheral IV Insertion Adult [OM.PC] Stat
[2020-12-07] MEDS ORDERED: Sodium Chloride 0.9% 10 ML Syringe FLUSH PRN (14:31)
[2020-12-07] MEDS ORDERED: Sodium Chloride 0.9% 1,000 ML IV ONE (14:31)
[2020-12-07 14:35] LABS: ANION GAP 10.3 mEq/L (7-13); CHLORIDE,CL 100 mmol/L (98-107); SODIUM,NA 137 mmol/L (136-145)
[2020-12-07] MEDS ORDERED: Iopamidol 612 MG/ML 50 ML SDV IVPUSH ONE (14:46)
[2020-12-07] MEDS ORDERED: Iopamidol 612 MG/ML 100 ML Bottle IVPUSH ONE (14:46)
--- NOTE | 2020-12-07 15:32 | CT ---
EXAMINATION: Abdomen Pelvis w Cont SEX: Female AGE: 35 years CLINICAL HISTORY: 35-year-old hypertensive 310 pound diabetic female with mid epigastric abdominal PAIN and abnormal WBC 13,000. Scan technique: Volume acquisition of data from the abdomen and pelvis obtained on an emergency basis without oral contrast but during the intravenous administration of 100 cc nonionic Isovue contrast at 2.5 cc/s via injector while patient was lying supine on the Siemens multislice scanner [place], [place]. All data archived in the PACS system for storage, reformatting axial/sagittal/coronal planes and study. Interpretation: Abnormal. 1. Large soft tissue pannus lower anterior abdominal wall with midline ventral wall hernia into the adipose tissues (apparent incarceration of a small bowel loop) without associated, current signs of mechanical bowel obstruction. 2. Gallbladder, liver, stomach, spleen, pancreas and adrenal glands anatomically correct i.e. unremarkable. 3. Symmetric normal appearing kidneys. No cortical mass, nephrolithiasis or signs of obstructive uropathy. Small volume urinary bladder with uniformly thick wall suggesting possibility of chronic cystitis. Clinical? UTI? 4. Small calcified uterine fibroid dome of the retroverted uterus. 5. No other pelvic or abdominal mass lesion, inflammatory "dirty" peritoneal fat, signs of mechanical bowel obstruction, ascites or free intraperitoneal air. 6. Lung bases are clear. Normal cardiac silhouette. No pericardial or pleural effusions. 7. Normal caliber aortoiliac vessels. Chronic lower thoracic and L5-S1 disc disease. No lumbar spine fracture or dislocation. No pathologic skeletal lesions. CONCLUSION: Ventral wall hernia. Uterine fibroid. No sign of mechanical bowel obstruction, intra-abdominal malignancy, or acute peritonitis.
[2020-12-07] MEDS ORDERED: Lactulose Soln 10 GM/15 ML 30 ML UD Cup PO ONE (15:48)
[2020-12-07] MEDS ORDERED: Bisacodyl 5 MG Tab PO ONE (15:49)
== END 2020-12-07 16:11 | disposition home or self-care (01) ==
LOC: DL.ED 12:42
DX: K43.9 Ventral hernia without obstruction or gangrene (principal); K59.09 Other constipation; E11.9 Type 2 diabetes mellitus without complications; E66.9 Obesity, unspecified; Z68.42 Body mass index [BMI] 45.0-49.9, adult; Z88.4 Allergy status to anesthetic agent; Z88.0 Allergy status to penicillin; Z79.899 Other long term (current) drug therapy; Z79.84 Long term (current) use of oral hypoglycemic drugs
CPT/HCPCS: 36415; 74177; 80053; 81003; 82150; 83605; 83690; 84703; 85025; 99284; A9270; J7030; Q9967

== ENCOUNTER 2021-02-21 10:16 | Emergency (ER) | payer OTHER ==
--- NOTE | 2021-02-21 10:36 | EDM.PDOC ---
ED HPI GENERAL MEDICAL PROBLEM - General Stated Complaint: [id number] HIGH BLOOD PRESSURE DOESN'T FEEL GOOD Time Seen by Provider: 02/21/21 10:36 Source of Information: Reports: Patient, RN, RN Notes Reviewed History Limitations: Reports: No Limitations - History of Present Illness INITIAL COMMENTS - FREE TEXT/NARRATIVE: Patient is a 35-year-old female who presents to ER with complaint of severe headache, nasal and sinus congestion, and overall feeling not well. Patient states this is gradually been getting worse since last weekend. States she was seen in the clinic and was told to start taking sertraline. Yesterday she was seen in the clinic to have her control removed from her right arm and was told that her blood pressure was high, was told to get up and move around more to get rid of the headache. Patient states she has been drinking large amounts of water and still feels very dry. States the headache continues to get worse, facial tenderness, watering eyes, as well as pain to the back of the head. Patient rates the pain 8/10. States she has been coughing up green sputum, admits to sore throat. Admits to fever and chills last week, but none in the last day or 2. Patient denies any nausea, vomiting, diarrhea, urinary symptoms. Patient denies any type of injury or trauma. Onset: Gradual Headache Pain Score (Numeric/FACES): 7 - Related Data Allergies Allergy/AdvReac Type Severity Reaction Status Date / Time lidocaine Allergy Intermediate Nausea and Verified 02/21/21 10:51 Vomiting Penicillins Allergy Intermediate Rash Verified 02/21/21 10:51 Home Meds: Home Meds Acetaminophen [Tylenol] 650 mg PO Q6H PRN 07/21/17 [History] Fluticasone Propionate [Flonase] 2 sprays NASBOTH Q6HR PRN 12/30/19 [History] Levothyroxine Sodium [Synthroid] 75 mcg PO DAILY 12/30/19 [History] lisinopriL [Lisinopril] 10 mg PO DAILY 12/30/19 [History] metFORMIN HCl [Metformin HCl] 1,000 mg PO DAILY 12/30/19 [History] Buprenorphine/Naloxone [Buprenorphine-Naloxone 8 MG-2 MG] 1 tab PO DAILY 06/11/20 [History] Ibuprofen [Motrin] 800 mg PO ASDIRECTED PRN 07/17/20 [History] Cetirizine [ZyrTEC] 10 mg PO DAILY 02/21/21 [History] Pioglitazone [Actos] 30 mg PO DAILY 02/21/21 [History] Past Medical History - Past Health History Medical/Surgical History: Denies Medical/Surgical History HEENT History: Reports: Impaired Vision Other HEENT History: WEARS CONTACT LENS Cardiovascular History: Reports: Other (See Below) Other Cardiovascular History: preeclampsia Respiratory History: Reports: None Gastrointestinal History: Reports: GERD Genitourinary History: Reports: None DISCOVERY MANAGER History: Reports: , Other (See Below) Other DISCOVERY MANAGER History: first , shortly after Musculoskeletal History: Reports: None Neurological History: Reports: Headaches, Chronic Psychiatric History: Reports: None Endocrine/Metabolic History: Reports: Diabetes, Type II, Obesity/BMI 30+ Hematologic History: Reports: None Immunologic History: Reports: None Oncologic (Cancer) History: Reports: None Dermatologic History: Reports: None - Infectious Disease History Infectious Disease History: Reports: Chicken Pox - Past Surgical History Head Surgeries/Procedures: Reports: None HEENT Surgical History: Reports: Oral Surgery Other HEENT Surgeries/Procedures: root canal "in my early 20s" Had lidocaine reaction. Cardiovascular Surgical History: Reports: None Respiratory Surgical History: Reports: None GI Surgical History: Reports: None Female Surgical History: Reports: Section Endocrine Surgical History: Reports: None Neurological Surgical History: Reports: None Musculoskeletal Surgical History: Reports: Carpal Tunnel, Other (See Below) Other Musculoskeletal Surgeries/Procedures:: CORTISONE INJECTION FOR CARPAL TUNNEL Oncologic Surgical History: Reports: None Dermatological Surgical History: Reports: None Social & Family History - Family History Family Medical History: No Pertinent Family History - Caffeine Use Caffeine Use: Reports: Coffee, Soda Caffeine Use Comment: APPROX 12 PK DAILY OF SODA POP, 2-3 CUPS COFFEE DAILY - Living Situation & Occupation Living situation: Reports: with Family Occupation: Employed ED ROS GENERAL - Review of Systems Review Of Systems: Comprehensive ROS is negative, except as noted in HPI. - Physical Exam Exam: See Below Exam Limited By: No Limitations General Appearance: Alert, WD/WN, Moderate Distress, Obese Eye Exam: Bilateral Eye: EOMI, Vision Changes (states blurred since headache), Other (watering bilaterally, clear thin drainage) Ears: Normal External Exam, Normal Canal, Hearing Grossly Normal, Other (Fluid behind TM's bilaterally) Nose: Normal Inspection Throat/Mouth: Normal Inspection, Normal Lips, Normal Teeth, Normal Gums, Normal Oropharynx, Normal Voice, No Airway Compromise Head Exam: Atraumatic, Normocephalic, Facial Tenderness, Sinus Tenderness Neck: Normal Inspection, Supple, Non-Tender, Full Range of Motion Respiratory/Chest: No Respiratory Distress, Lungs Clear, Normal Breath Sounds, No Accessory Muscle Use, Chest Non-Tender Cardiovascular: Normal Peripheral Pulses, Regular Rate, Rhythm, No Edema, No Gallop, No JVD, No Murmur, No Rub GI/Abdominal: Normal Bowel Sounds, Soft, Non-Tender (Female) Exam: Deferred Rectal (Female) Exam: Deferred Neuro Exam (Abbreviated): Alert, Oriented, Normal Cognition, Normal Gait, No Motor/Sensory Deficits Back Exam: Normal Inspection, Full Range of Motion. No: CVA Tenderness (L), CVA Tenderness (R) Extremities: Normal Inspection, Normal Range of Motion, Non-Tender, No Pedal Edema, Normal Capillary Refill Psychiatric: Normal Affect, Normal Mood Skin Exam: Warm, Dry, Intact, Normal Color, No Rash Course - Vital Signs Last Recorded V/S: Last Vital Signs Temp 98.6 F 02/21/21 10:38 Pulse 84 02/21/21 10:38 Resp 20 02/21/21 10:38 BP 131/73 02/21/21 10:38 Pulse Ox 99 02/21/21 10:38 - Orders/Labs/Meds Labs: Laboratory Tests 02/21/21 02/21/21 02/21/21 Range/Units 11:04 11:04 11:09 WBC 7.4 (5.0-10.0) 10^3/uL RBC 4.69 (4.2-5.4) 10^6/uL Hgb 13.2 (12.0-16.0) g/dL Hct 40.8 (37.0-47.0) % MCV 87.0 (80-100) fL MCH 28.1 (27.0-34.0) pg MCHC 32.4 L (33.0-35.0) g/dL Plt Count 301 (150-450) 10^3/uL Neut % (Auto) 70.8 (42.2-75.2) % Lymph % (Auto) 17.2 L (20.5-50.1) % [place] % (Auto) 5.8 (2-8) % Eos % (Auto) 5.8 H (1.0-3.0) % Baso % (Auto) 0.4 (0.0-1.0) % Sodium 143 (136-145) mmol/L Potassium 3.8 (3.5-5.1) mmol/L Chloride 106 (98-107) mmol/L Carbon Dioxide 26 (21-32) mmol/L Anion Gap 14.8 H (7-13) mEq/L BUN 7 (7-18) mg/dL Creatinine 0.76 (0.55-1.02) mg/dL Est Cr Clr Drug Dosing 100.47 mL/min Estimated GFR (MDRD) > 60 BUN/Creatinine Ratio 9.2 (No establ ref range) Glucose 112 H (70-99) mg/dL Calcium 8.3 L (8.5-10.1) mg/dL Total Bilirubin 0.7 (0.2-1.0) mg/dL AST 22 (15-37) U/L ALT 49 (14-59) U/L Alkaline Phosphatase 65 (46-116) U/L C-Reactive Protein 1.0 H (0.0-0.9) mg/dL Total Protein 8.1 (6.4-8.2) g/dL Albumin 3.4 (3.4-5.0) g/dL Globulin 4.7 Albumin/Globulin Ratio 0.7 Urine Color (YELLOW) Urine Appearance (CLEAR) Urine pH (5.0-9.0) Ur Specific [place] (1.005-1.030) Urine Protein (NEGATIVE) Urine Glucose (UA) (NEGATIVE) Urine Ketones (NEGATIVE) Urine Occult Blood (NEGATIVE) Urine Nitrite (NEGATIVE) Urine Bilirubin (NEGATIVE) Urine Urobilinogen (0.2-1.0) mg/dL Ur Leukocyte Esterase (NEGATIVE) Urine HCG, Qual Negative Influenza Type A RNA (NEGATIVE) Influenza Type B RNA (NEGATIVE) SARS-CoV-2 RNA (ANGEL) (NEGATIVE) 02/21/21 02/21/21 Range/Units 11:09 11:43 WBC (5.0-10.0) 10^3/uL RBC (4.2-5.4) 10^6/uL Hgb (12.0-16.0) g/dL Hct (37.0-47.0) % MCV (80-100) fL MCH (27.0-34.0) pg MCHC (33.0-35.0) g/dL Plt Count (150-450) 10^3/uL Neut % (Auto) (42.2-75.2) % Lymph % (Auto) (20.5-50.1) % [place] % (Auto) (2-8) % Eos % (Auto) (1.0-3.0) % Baso % (Auto) (0.0-1.0) % Sodium (136-145) mmol/L Potassium (3.5-5.1) mmol/L Chloride (98-107) mmol/L Carbon Dioxide (21-32) mmol/L Anion Gap (7-13) mEq/L BUN (7-18) mg/dL Creatinine (0.55-1.02) mg/dL Est Cr Clr Drug Dosing mL/min Estimated GFR (MDRD) BUN/Creatinine Ratio (No establ ref range) Glucose (70-99) mg/dL Calcium (8.5-10.1) mg/dL Total Bilirubin (0.2-1.0) mg/dL AST (15-37) U/L ALT (14-59) U/L Alkaline Phosphatase (46-116) U/L C-Reactive Protein (0.0-0.9) mg/dL Total Protein (6.4-8.2) g/dL Albumin (3.4-5.0) g/dL Globulin Albumin/Globulin Ratio Urine Color Yellow (YELLOW) Urine Appearance Clear (CLEAR) Urine pH 6.5 (5.0-9.0) Ur Specific [place] 1.015 (1.005-1.030) Urine Protein Negative (NEGATIVE) Urine Glucose (UA) Negative (NEGATIVE) Urine Ketones Negative (NEGATIVE) Urine Occult Blood Negative (NEGATIVE) Urine Nitrite Negative (NEGATIVE) Urine Bilirubin Negative (NEGATIVE) Urine Urobilinogen 0.2 (0.2-1.0) mg/dL Ur Leukocyte Esterase Negative (NEGATIVE) Urine HCG, Qual Influenza Type A RNA Negative (NEGATIVE) Influenza Type B RNA Negative (NEGATIVE) SARS-CoV-2 RNA (ANGEL) Negative (NEGATIVE) Meds: Medications Discontinued Medications Generic Name Dose Route Start Last Admin Trade Name Freq PRN Reason Stop Dose Admin Diphenhydramine HCl 50 mg 02/21/21 11:01 02/21/21 11:31 Diphenhydramine 50 Mg/Ml Sdv IVPUSH 02/21/21 11:02 50 mg ONETIME ONE Administration Sodium Chloride 1,000 mls @ 999 mls/hr 02/21/21 11:01 02/21/21 11:31 Normal Saline IV 02/21/21 12:01 999 mls/hr .BOLUS ONE Administration Ketorolac Tromethamine 30 mg 02/21/21 11:02 02/21/21 11:31 Ketorolac 30 Mg/Ml Sdv IVPUSH 02/21/21 11:03 30 mg ONETIME ONE Administration - Radiology Interpretation Free Text/Narrative:: Head CT wo contrast: PROCEDURE INFORMATION: Exam: CT Head Without Contrast Exam date and time: 02/21/2021 12:14 PM Age: 35 years old Clinical indication: Pain; Headache not specified; Additional info: Facial/sinus pressure/severe heada he TECHNIQUE: Imaging protocol: Computed tomography of the head without contrast. Radiation optimization: All CT scans at this facility use at least one of these dose optimization techniques: automated exposure control; mA and/or kV adjustment per patient size (includes targeted exams where dose is matched to clinical indication); or iterative reconstruction. COMPARISON: No relevant prior studies available. FINDINGS: Brain: No hemorrhage, mass effect or midline shift. Cerebral ventricles: No ventriculomegaly. Paranasal sinuses: Mucosal thickening noted within the ethmoid air cells bilaterally as well as the maxillary sinuses. Mastoid air cells: Visualized mastoid air cells are well aerated. Bones/joints: Right to left nasal septal deviation. Soft tissues: No acute changes IMPRESSION: 1. No hemorrhage, mass effect or midline shift. 2. Mucosal thickening noted within the ethmoid air cells bilaterally as well as the maxillary sinuses. 3. Right to left nasal septal deviation. Thank you for allowing us to participate in the care of your patient. Dictated and Authenticated by: David Krause DO 02/21/2021 1:19 PM Central Time ([place] & [place]) Max/Face/Sinus CT wo contrast: PROCEDURE INFORMATION: Exam: CT Maxillofacial Without Contrast Exam date and time: 02/21/2021 12:14 PM Age: 35 years old Clinical indication: Face pain and headache; Type not specified; Additional info: Facial/sinus pressure/severe heada he TECHNIQUE: Imaging protocol: Computed tomography images of the face without contrast. Radiation optimization: All CT scans at this facility use at least one of these dose optimization techniques: automated exposure control; mA and/or kV adjustment per patient size (includes targeted exams where dose is matched to clinical indication); or iterative reconstruction. COMPARISON: No relevant prior studies available. FINDINGS: Orbital cavity: Orbits are normal. Globes are unremarkable. Bones/joints: Right to left nasal septal deviation. Paranasal sinuses: Mucosal thickening is noted within the maxillary sinuses bilaterally. Moderate mucosal thickening noted within the ethmoid air cells bilaterally. Small air- fluid level noted within the right sphenoid sinus. Mild mucosal thickening noted within the frontal sinuses. Soft tissues: Unremarkable. IMPRESSION: 1. Mucosal thickening is noted within the maxillary sinuses bilaterally. 2. Moderate mucosal thickening noted within the ethmoid air cells bilaterally. 3. Right to left nasal septal deviation. 4. Small air-fluid level noted within the right sphenoid sinus. 5. Mild mucosal thickening noted within the frontal sinuses. Thank you for allowing us to participate in the care of your patient. Dictated and Authenticated by: David Krause DO 02/21/2021 1:20 PM Central Time ([place] & [place]) See rad report Departure - Departure Time of Disposition: 13:25 Disposition: Home, Self-Care 01 Condition: Fair Clinical Impression: Sinusitis Qualifiers: Sinusitis location: unspecified location Chronicity: acute Recurrence: non-recurrent Qualified Code(s): J01.90 - Acute sinusitis, unspecified - Discharge Information *PRESCRIPTION DRUG MONITORING PROGRAM REVIEWED*: No *COPY OF PRESCRIPTION DRUG MONITORING REPORT IN PATIENT CLEO: No Instructions: Sinusitis, Adult, [id number] Forms: ED Department Discharge Additional Instructions: May use sinus rinses [id number] Rx: Cefdinir 300 mg orally every 12 hours x10 days Drink plenty of water Continue taking decongestant Begin taking a probiotic Follow-up with your primary care provider if no improvement May use Benadryl as directed for headache May use Tylenol and/or ibuprofen as directed for pain Sepsis Event Note (ED) - Focused Exam Vital Signs: Vital Signs Temp Pulse Resp BP Pulse Ox 02/21/21 10:38 98.6 F 84 20 131/73 99
[2021-02-21 10:42] VITALS: BP 131/73; PULSE 84
[2021-02-21] MEDS ORDERED: Sodium Chloride 0.9% 1,000 ML IV ONE (11:01)
[2021-02-21] MEDS ORDERED: diphenhydrAMINE 50 MG/ML SDV IVPUSH ONE (11:01)
[2021-02-21] MEDS ORDERED: Ketorolac 30 MG/ML SDV IVPUSH ONE (11:02)
[2021-02-21 11:29] LABS: ANION GAP 14.8 mEq/L (7-13); CHLORIDE,CL 106 mmol/L (98-107); SODIUM,NA 143 mmol/L (136-145)
[2021-02-21 12:27] LABS: CORONAVIRUS COVID-19 NAA NEGATIVE (NEGATIVE)
--- NOTE | 2021-02-21 13:20 | CT ---
PROCEDURE INFORMATION: Exam: CT Head Without Contrast Exam date and time: 02/21/2021 12:14 PM Age: 35 years old Clinical indication: Pain; Headache not specified; Additional info: Facial/sinus pressure/severe heada he TECHNIQUE: Imaging protocol: Computed tomography of the head without contrast. Radiation optimization: All CT scans at this facility use at least one of these dose optimization techniques: automated exposure control; mA and/or kV adjustment per patient size (includes targeted exams where dose is matched to clinical indication); or iterative reconstruction. COMPARISON: No relevant prior studies available. FINDINGS: Brain: No hemorrhage, mass effect or midline shift. Cerebral ventricles: No ventriculomegaly. Paranasal sinuses: Mucosal thickening noted within the ethmoid air cells bilaterally as well as the maxillary sinuses. Mastoid air cells: Visualized mastoid air cells are well aerated. Bones/joints: Right to left nasal septal deviation. Soft tissues: No acute changes IMPRESSION: 1. No hemorrhage, mass effect or midline shift. 2. Mucosal thickening noted within the ethmoid air cells bilaterally as well as the maxillary sinuses. 3. Right to left nasal septal deviation.
--- NOTE | 2021-02-21 13:21 | CT ---
PROCEDURE INFORMATION: Exam: CT Maxillofacial Without Contrast Exam date and time: 02/21/2021 12:14 PM Age: 35 years old Clinical indication: Face pain and headache; Type not specified; Additional info: Facial/sinus pressure/severe heada he TECHNIQUE: Imaging protocol: Computed tomography images of the face without contrast. Radiation optimization: All CT scans at this facility use at least one of these dose optimization techniques: automated exposure control; mA and/or kV adjustment per patient size (includes targeted exams where dose is matched to clinical indication); or iterative reconstruction. COMPARISON: No relevant prior studies available. FINDINGS: Orbital cavity: Orbits are normal. Globes are unremarkable. Bones/joints: Right to left nasal septal deviation. Paranasal sinuses: Mucosal thickening is noted within the maxillary sinuses bilaterally. Moderate mucosal thickening noted within the ethmoid air cells bilaterally. Small air-fluid level noted within the right sphenoid sinus. Mild mucosal thickening noted within the frontal sinuses. Soft tissues: Unremarkable. IMPRESSION: 1. Mucosal thickening is noted within the maxillary sinuses bilaterally. 2. Moderate mucosal thickening noted within the ethmoid air cells bilaterally. 3. Right to left nasal septal deviation. 4. Small air-fluid level noted within the right sphenoid sinus. 5. Mild mucosal thickening noted within the frontal sinuses.
== END 2021-02-21 13:40 | disposition home or self-care (01) ==
LOC: DL.ED 10:16
DX: J01.90 Acute sinusitis, unspecified (principal); E11.9 Type 2 diabetes mellitus without complications; E66.9 Obesity, unspecified; Z68.30 Body mass index [BMI] 30.0-30.9, adult; Z20.822 Contact with and (suspected) exposure to COVID-19; Z79.84 Long term (current) use of oral hypoglycemic drugs; Z79.899 Other long term (current) drug therapy; Z68.43 Body mass index [BMI] 50.0-59.9, adult
CPT/HCPCS: 0240U; 36415; 70450; 70486; 80053; 81003; 81025; 85025; 86140; 96374; 96375; 99283; 99284; J1200; J1885; J7030

== ENCOUNTER 2021-03-17 13:24 | Emergency (ER) | payer OTHER ==
[2021-03-17 14:32] VITALS: BP 115/67; PULSE 69
== END 2021-03-17 16:03 | disposition left against medical advice (07) ==
LOC: DL.ED 13:24
DX: Z53.21 Procedure and treatment not carried out due to patient leaving prior to being seen by health care provider (principal)

== ENCOUNTER 2022-06-29 16:46 | Emergency (ER) | payer OTHER ==
[2022-06-29 17:09] VITALS: BP 124/78; PULSE 80
[2022-06-29 17:39] LABS: ANION GAP 13.7 mEq/L (7-13)
[2022-06-29] MEDS: Iopamidol 612 MG/ML 100 ML Bottle IVPUSH ONE (18:45)
[2022-06-29] MEDS: Sodium Chloride 0.9% 10 ML Syringe FLUSH PRN (18:52)
== END 2022-06-29 21:05 ==
LOC: DL.ED 16:46
DX: K56.609 Unspecified intestinal obstruction, unspecified as to partial versus complete obstruction (principal); I10 Essential (primary) hypertension; E11.9 Type 2 diabetes mellitus without complications; E03.9 Hypothyroidism, unspecified; E66.9 Obesity, unspecified; Z20.822 Contact with and (suspected) exposure to COVID-19; Z88.0 Allergy status to penicillin; Z88.8 Allergy status to other drugs, medicaments and biological substances; Z79.899 Other long term (current) drug therapy; Z68.43 Body mass index [BMI] 50.0-59.9, adult
CPT/HCPCS: 36415; 74018; 74177; 80053; 81001; 83605; 83690; 83735; 84703; 85025; 86140; 87635; 99284; J3490; Q9967; U0002

== ENCOUNTER 2024-06-18 22:54 | Observation (INO) | payer BC, OTHER ==
[2024-06-19 00:45] LABS: HEMATOCRIT 39.7 % (37.0-47.0); HEMOGLOBIN 12.7 g/dL (12.0-16.0); LYMPHOCYTES PERCENT AUTO 15.6 % (20.5-50.1); MEAN CORPUSCULAR HEMOGLOBIN 26.6 pg (27.0-34.0); MEAN CORPUSCULAR VOLUME 83.1 fL (80-100); NEUTROPHILS PERCENT AUTO 75.5 % (42.2-75.2); PLATELET COUNT,PLT 298 10^3/uL (150-450); RED BLOOD CELL COUNT 4.78 10^6/uL (4.2-5.4); WHITE BLOOD CELL COUNT,WBC 11.7 10^3/uL (5.0-10.0)
[2024-06-19 00:46] LABS: BASOPHILS PERCENT AUTO 0.3 % (0.0-1.0); EOSINOPHILS PERCENT AUTO 2.9 % (1.0-3.0); MONOCYTES PERCENT AUTO 5.7 % (2-8)
[2024-06-19] MEDS: Ondansetron 4 MG/2 ML SDV IVPUSH ONE (00:46)
[2024-06-19] MEDS: Famotidine 20 MG/2 ML SDV IVPUSH ONE (00:46)
[2024-06-19] MEDS: Sodium Chloride 0.9% 1,000 ML IV ONE (00:46)
[2024-06-19 00:51] LABS: APPEARANCE,URINE CLEAR (CLEAR); BILIRUBIN,URINE NEGATIVE (NEGATIVE); COLOR,URINE YELLOW (YELLOW); GLUCOSE,URINE NEGATIVE (NEGATIVE); KETONES,URINE NEGATIVE (NEGATIVE); LEUKOCYTE ESTERASE,URINE NEGATIVE (NEGATIVE); NITRITE,URINE NEGATIVE (NEGATIVE); OCCULT BLOOD,URINE NEGATIVE (NEGATIVE); PROTEIN,URINE NEGATIVE (NEGATIVE); UROBILINOGEN,URINE 0.2 mg/dL (0.2-1.0)
[2024-06-19 01:07] LABS: BLOOD UREA NITROGEN,BUN 12 mg/dL (7-18); CARBON DIOXIDE,CO2 29 mmol/L (21-32); CHLORIDE,CL 101 mmol/L (98-107); GLUCOSE RANDOM 165 mg/dL (70-99); SODIUM,NA 137 mmol/L (136-145)
[2024-06-19 01:08] LABS: A/G RATIO 0.7; ALANINE AMINOTRANSFERASE,ALT 72 U/L (14-59); ALBUMIN 3.5 g/dL (3.4-5.0); ALKALINE PHOSPHATASE 92 U/L (46-116); ASPARTATE AMNIOTRANSFERASE,AST 37 U/L (15-37); BILIRUBIN TOTAL 0.4 mg/dL (0.2-1.0); BUN/CREATININE RATIO 17.1 (No establ ref range); EST CRCL DRUG DOSING (CG) 104.93 mL/min; LIPASE 30 U/L (16-77); MAGNESIUM 1.9 mg/dL (1.8-2.4); PROTEIN TOTAL,TP 8.7 g/dL (6.4-8.2)
[2024-06-19 01:11] LABS: LACTIC ACID 1.9 mmol/L (0.4-2.0)
[2024-06-19 01:14] LABS: CALCIUM 9.1 mg/dL (8.5-10.1); ESTIMATED GFR 113 mL/min (>=60)
[2024-06-19 01:16] LABS: BAND PERCENT MAN 4 %; EOSINOPHILS PERCENT MAN 1 % (1-3); LYMPHOCYTES PERCENT MAN 14 % (20-50); MONOCYTES PERCENT MAN 3 % (2-8); SEG NEUTROPHILS PERCENT MAN 78 % (42-75)
[2024-06-19] MEDS: Iopamidol 612 MG/ML 100 ML Bottle IVPUSH ONE (01:29)
[2024-06-19] MEDS: Sodium Chloride 0.9% 1,000 ML IV SCH ×2 (04:52→11:44)
[2024-06-19] MEDS: Ketorolac 30 MG/ML SDV IVPUSH ONE (04:52)
[2024-06-19] MEDS ORDERED: Acetaminophen 325 MG Tab PO PRN (05:40)
[2024-06-19] MEDS ORDERED: Melatonin 3 MG Tab PO PRN (05:46)
[2024-06-19] MEDS ORDERED: Bisacodyl 5 MG Tab PO PRN (05:46)
[2024-06-19] MEDS ORDERED: Ketorolac 30 MG/ML SDV IVPUSH PRN (05:46)
[2024-06-19] MEDS ORDERED: Docusate Sodium 100 MG Cap PO PRN (05:46)
[2024-06-19] MEDS ORDERED: Ondansetron 4 MG Tab.DIS PO PRN (05:46)
[2024-06-19] MEDS ORDERED: Glucagon,Human Recombinant 1 MG Vial IM PRN (05:50)
[2024-06-19] MEDS ORDERED: 50% Dextrose in Water 50 ML Syringe IVPUSH PRN (05:50)
[2024-06-19] MEDS: Pantoprazole 40 MG Tab.CR PO SCH (06:10)
[2024-06-19] MEDS: Benzocaine/Docusate Sodium 20-283 MG/5 ML Enema RECTAL ONE (06:34)
[2024-06-19] MEDS: Insulin Lispro 100 Units/ML 3 ML Vial SUBCUT SCH (08:15)
[2024-06-19] MEDS: Buprenorphine/Naloxone 8-2 MG Tab.SL SL SCH (08:54)
[2024-06-19] MEDS: Enoxaparin 40 MG/0.4 ML Syringe SUBCUT SCH (08:58)
[2024-06-19] MEDS ORDERED: Lisinopril 10 MG Tab PO SCH (09:00)
[2024-06-19] MEDS: Benzocaine 20% Topical Spray UD ONE (09:03)
[2024-06-19] MEDS: FLUoxetine 10 MG Cap PO SCH (09:04)
[2024-06-19] MEDS: Pantoprazole 40 MG Vial IVPUSH SCH (09:40)
[2024-06-19] MEDS: Benzocaine 20% Topical Spray UD MUCMEM ONE (11:48)
[2024-06-19 13:32] VITALS: BP 106/63; PULSE 73
== END 2024-06-19 13:30 ==
LOC: DL.ED 22:54 → DL.MS 06-19 04:53
PROVIDERS: ADMIT Internal Medicine; ATTEND Internal Medicine
DX: K58.9 Irritable bowel syndrome, unspecified (principal); K21.9 Gastro-esophageal reflux disease without esophagitis; E11.9 Type 2 diabetes mellitus without complications; E03.9 Hypothyroidism, unspecified; E66.9 Obesity, unspecified; Z90.49 Acquired absence of other specified parts of digestive tract; Z98.890 Other specified postprocedural states; Z87.59 Personal history of other complications of pregnancy, childbirth and the puerperium; Z88.0 Allergy status to penicillin; Z88.4 Allergy status to anesthetic agent; Z79.899 Other long term (current) drug therapy; Z68.42 Body mass index [BMI] 45.0-49.9, adult
CPT/HCPCS: 36415; 74018; 74177; 80053; 81003; 81025; 82947; 83605; 83690; 83735; 84484; 85025; 93005; 93010; 96361; 96372; 96374; 96375; 99285; 99285-25; A9270; A9270-GY; G0378; J1650; J1885; J2405; J2470; J3490; J7030; Q9967